=== PATIENT | male | born 1950 | race Caucasian/White ===

== ENCOUNTER 2021-02-19 13:23 | Inpatient (IN) | payer MEDICARE, OTHER ==
[2021-02-19] VITALS (18 sets, daily range): BP systolic 92–121; BP diastolic 30–78
[~2021-02-19] VITALS: Ht 170.2 cm; Wt 68.5 kg
[~2021-02-19 13:23] MED LIST: ACID1TAB12 GT; AMIO200T5 GT; BACL10TA GT; CETI10CA GT; CHLO118L4 TP; CRAN3875 GT; DOCU-270 GT; ERYT-113 GT; FEXO180T GT; LISI10TA29 GT; METO25TA4 GT; MULT1TAB11 GT; PANT40TA49 GT; PROSTAT 64; RIVA10TA GT; SIMV-46 GT
[2021-02-19] MEDS ORDERED: VANCOMYCIN 1 GM in IV D5W 250 ML IV ONE (13:30)
[2021-02-19] MEDS ORDERED: CEFEPIME 1 GM in IV D5W 50 ML IV ONE (13:30)
--- NOTE | 2021-02-19 13:44 | NUR ---
STARTED LINE, BLOOD SPECIMEN COLLECTED AND SENT TO THE LAB
[2021-02-19 13:47] LABS: BASOPHILS # (AUTO) 0.1 K/uL (0.0-0.2); BASOPHILS % (AUTO) 0.5 % (0.0-2.0); EOSINOPHILS % (AUTO) 0.3 % (0.0-6.0); HEMATOCRIT 45 % (39-51); HEMOGLOBIN 15.1 g/dL (13.5-17.5); LYMPHOCYTES # (AUTO) 1.9 K/uL (0.8-4.8); LYMPHOCYTES % (AUTO) 13.8 % (20.0-44.0); MEAN CORPUSCULAR HGB CONC 34 g/dl (31.0-36.0); MEAN CORPUSCULAR VOLUME 98 fL (80-96); MONOCYTES # (AUTO) 1.2 K/uL (0.1-1.30); MONOCYTES % (AUTO) 8.3 % (2.0-12.0); NEUTROPHILS # (AUTO) 10.8 K/uL (1.8-8.9); NEUTROPHILS % (AUTO) 77.1 % (43.0-81.0); PLATELET COUNT (AUTO) 243 K/uL (150-450); RED BLOOD CELL COUNT(AUTO) 4.59 MIL/uL (4.5-6.0)
[2021-02-19 14:00] LABS: CALCIUM, SERUM 9.3 mg/dL (8.5-10.1); CARBON DIOXIDE 37 mmol/L (21-32); CHLORIDE 102 mmol/L (98-107); CREATININE 1.3 mg/dL (0.6-1.3); GLUCOSE 98 mg/dL (74-106); POTASSIUM 4.8 mmol/L (3.5-5.1); SODIUM SERUM 144 mmol/L (136-145); UREA NITROGEN, BLOOD 29 mg/dL (7-18)
[2021-02-19] MEDS ORDERED: IV NS 0.9% 1,000 ML BAG IV ONE (14:00)
[2021-02-19 14:06] LABS: ALANINE AMINOTRANSFERASE 34 U/L (12-78); ALBUMIN 2.4 g/dL (3.4-5.0); ALKALINE PHOSPHATASE 204 U/L (46-116); ASPARTATE AMINOTRANSFERASE 26 U/L (15-37); BILIRUBIN,DIRECT 0.2 mg/dL (0.0-0.2); BILIRUBIN,TOTAL 0.7 mg/dL (0.2-1.0); TOTAL PROTEIN, SERUM 7.5 g/dL (6.4-8.2)
--- NOTE | 2021-02-19 14:13 | NUR ---
COVID SWAB DONE AND SENT TO THE LAB
--- NOTE | 2021-02-19 14:21 | NUR ---
URINE COLLECTED AND SENT TO THE LAB
[2021-02-19 14:27] LABS: BILIRUBIN,URINE SMALL (NEGATIVE); COLOR,URINE YELLOW (YELLOW); LEUKOCYTE ESTERASE ,URINE Small (NEGATIVE); NITRITE, URINE Positive (NEGATIVE); PH,URINE 8.5 (5.0-8.0); PROTEIN,URINE 100 mg/dl (NEGATIVE); UGLUCOSE Negative (NEGATIVE)
[2021-02-19] MEDS ORDERED: OMEG1600 GT (14:27)
[2021-02-19] MEDS ORDERED: ACET-868 GT (14:27)
[2021-02-19] MEDS ORDERED: BISA10SU11 RC (14:27)
[2021-02-19] MEDS ORDERED: HYDR-4076 GT (14:27)
[2021-02-19] MEDS ORDERED: [UNRECOGNIZED DRUG - CODE] GT (14:27)
[2021-02-19] MEDS ORDERED: ACET-2605 GT (14:27)
[2021-02-19] MEDS ORDERED: IPRA4AER IH ×2 (14:27)
[2021-02-19] MEDS ORDERED: OMEP20CA15 GT (14:27)
[2021-02-19] MEDS ORDERED: NUT.237L25 GT (14:27)
[2021-02-19] MEDS ORDERED: TAMS-12 GT (14:27)
[2021-02-19] MEDS ORDERED: CHOL400T GT (14:27)
[2021-02-19] MEDS ORDERED: LEVO75TA7 GT (14:27)
[2021-02-19] MEDS ORDERED: POLY15DR40 EACHEYE (14:27)
[2021-02-19] MEDS ORDERED: SPIR25TA GT (14:27)
[2021-02-19] MEDS ORDERED: CALC1TAB30 GT (14:27)
[2021-02-19] MEDS ORDERED: CRAN3875 GT (14:27)
[2021-02-19] MEDS ORDERED: NA P133E RC (14:27)
[2021-02-19] MEDS ORDERED: SACC250C GT (14:27)
[2021-02-19] MEDS ORDERED: MAGN400O6 GT (14:27)
[2021-02-19 14:35] LABS: BACTERIA,URINE 1+ /HPF (None Seen); SQUAMOUS EPITHELIAL CELL,UR Rare /HPF (None Seen)
--- NOTE | 2021-02-19 15:50 | NUR ---
80/[address] GRIGSBY MADE AWARE WITH NO NEW ORDERS
[2021-02-19] MEDS ORDERED: ZOLPIDEM TARTRATE 5 MG TABLET PO PRN (17:30)
[2021-02-19] MEDS ORDERED: CEFTRIAXONE 1 G in IV D5W 50 ML IV SCH (17:30)
[2021-02-19] MEDS ORDERED: ONDANSETRON HCL/PF 4 MG/2 ML VIAL IVP PRN (17:30)
[2021-02-19] MEDS ORDERED: Z GUARD REMEDY 2 OZ OINT TP PRN (17:30)
[2021-02-19] MEDS ORDERED: BISACODYL SUPP (10 MG) 10 MG/SUPP.RECT SUPP.RECT RC PRN (17:30)
[2021-02-19] MEDS ORDERED: HYDROCODONE/APAP 5/325MG TABLET PO PRN (17:30)
[2021-02-19] MEDS ORDERED: ACETAMINOPHEN 325 MG TABLET PO PRN (17:30)
[2021-02-19] MEDS: NOREPINEPHRINE 8 MG in IV NS 0.9% 250 ML IV ONE ×2 (17:37→17:39)
--- NOTE | 2021-02-19 18:21 | NUR ---
JOCELYN () [phone] (HOME), (CELL)
--- NOTE | 2021-02-19 18:25 | NUR ---
ROOM [facility]
--- NOTE | 2021-02-19 18:40 | NUR ---
PICC LINE NURSE AT THE BEDSIDE
--- NOTE | 2021-02-19 18:44 | NUR ---
REPORT GIVEN TO NURSE GONZALES FROM ICU
--- NOTE | 2021-02-19 18:46 | NUR ---
CHEST R-RAY S/P PICC LINE INSERTION PER DR HAMLIN
--- NOTE | 2021-02-19 19:15 | NUR ---
VENEER PRESS OPERATOR NOTES RECEIVED PT FROM ER. OPENS EYES ON TRACH, 4L O2. NO SOB. NO S/S OF RESPIRATORY DISTRESS. GTUBE IN PLACE. IV ACCESS ON L WRIST #24, R AC#18 AND MANUELITO PICC LINE. ALL INTACT, PATENT AND FLUSHED. LEVO @0.2MCG/KG/MIN. HERNANDEZ CATH IN PLACE, DRAINING TEA COLORED URINE. SAFETY MEASURES IN PLACE. BED LOCKED AND IN LOWEST POSITION. ENDORSED TO NIGHT RN FOR DINAH.
[2021-02-19] MEDS: NOREPINEPHRINE 8 MG in IV NS 0.9% 242 ML IV PRN (19:22)
--- NOTE | 2021-02-19 19:40 | NUR ---
COMMUNITY SUPPORT SPECIALIST OPENING NOTE REC'D PT IN BED. ALERT, NONVERBAL, TPIECE RECEIVING 4L OF O2, TOLERATING WELL CURRENTLY O2 IS 97%. NO RESP DISTRESS NOTED, NO SOB. ON TELE MONITOR, PT PRESENTS WITH NSR HR OF 70. IV SITES FLUSHED, PICC NOTED TO HAVE GOOD BLOOD RETURN. RUNNING IS LEVO AT 0.2 MCG/KG/MIN TO KEEP SBP <90. WILL TITRATE ORDERED. PT IS AFEBRILE. PT HAS GT, AUSCULTATED, ASPIRATED CONFIRMED FOR PLACEMENT ASPIRATED, 15CC RESIDUAL NOTED. FLUSHED. NOTED DISCOLORATION ON GLUTEAL FOLDS, SACRAL AREA. SKIN INTACT. HERNANDEZ CATH PRESENT DRAINING VIA GRAVITY, RED/DARK COLOR URINE NOTED. PT SAFETY MEASURES OBSERVED BED LOCKED IN LOWEST POSITION HOB ELEVATED, SIDE RAILS UP X3. WILL CONT TO MONITOR CLOSELY THROUGHOUT SHIFT.
[2021-02-19] MEDS: IV NS 0.9% 1,000 ML IV PRN (19:47)
--- NOTE | 2021-02-19 20:50 | NUR ---
GAVE UPDATE TO JOCELYN SAYS SHE PLANS ON VISITING TOMORROW
[2021-02-19] MEDS ORDERED: ENOXAPARIN SODIUM 40 MG/0.4 ML DISP.SYRIN SQ SCH (21:00)
--- NOTE | 2021-02-19 21:00 | NUR ---
ALEXA NOTE: JOCELYN WORK PHONE NUMBER IN CASE CANNOT REACH THROUGH CELL OR HOME WORK: [phone] Addendum: 02/20/21 at 0651 by KO VILLANUEVA RN JOCELYN KRISHNAN)
[2021-02-19] MEDS: SIMVASTATIN 20 MG TABLET GT SCH (21:46)
--- NOTE | 2021-02-19 22:00 | NUR ---
PT IS COVID VACCINATED, BOTH MODERNA RECEIVED MAY 2020 AND JUN 2020 PER JOCELYN
[2021-02-20] VITALS (89 sets, daily range): BP systolic 83–130; BP diastolic 34–82
[2021-02-20] MEDS: VANCOMYCIN 1 GM in IV D5W 250 ML IV SCH ×2 (01:11→13:53)
[2021-02-20] MEDS: NOREPINEPHRINE 8 MG in IV NS 0.9% 242 ML IV PRN ×3 (03:08→19:57)
[2021-02-20 04:35] LABS: BASOPHILS % (AUTO) 0.2 % (0.0-2.0); EOSINOPHILS % (AUTO) 0.3 % (0.0-6.0); HEMATOCRIT 37 % (39-51); HEMOGLOBIN 12.4 g/dL (13.5-17.5); LYMPHOCYTES # (AUTO) 1.5 K/uL (0.8-4.8); LYMPHOCYTES % (AUTO) 12.3 % (20.0-44.0); MEAN CORPUSCULAR HGB CONC 34 g/dl (31.0-36.0); MEAN CORPUSCULAR VOLUME 99 fL (80-96); MONOCYTES # (AUTO) 0.8 K/uL (0.1-1.30); MONOCYTES % (AUTO) 6.1 % (2.0-12.0); NEUTROPHILS # (AUTO) 10.1 K/uL (1.8-8.9); NEUTROPHILS % (AUTO) 81.1 % (43.0-81.0); PLATELET COUNT (AUTO) 230 K/uL (150-450); RED BLOOD CELL COUNT(AUTO) 3.73 MIL/uL (4.5-6.0); WHITE BLOOD COUNT (AUTO) 12.4 K/uL (4.3-11.0)
[2021-02-20 04:59] LABS: CALCIUM, SERUM 7.8 mg/dL (8.5-10.1); CREATININE 0.9 mg/dL (0.6-1.3); MAGNESIUM 1.7 mg/dL (1.8-2.4); POTASSIUM 3.3 mmol/L (3.5-5.1)
[2021-02-20 05:14] LABS: THYROID STIMULATING HORMONE 2.231 uIU/mL (0.358-3.74)
--- NOTE | 2021-02-20 06:51 | NUR ---
RN CLOSING NOTE NO SIGNIFICANT CHANGES IN PT CONDITION. STILL REMAINS ON 4L ON TPIECE. NO DISTRESS NOTED. BED BATH DONE, ORAL CARE DONE. SUCTIONING NEEDED. SPUTUM THICK IN CONSISTENCY. PT DENIES PAIN. PT REMAINS WITH LEVO AT 0.16 MCG/KG/MIN TO KEEP BP >90 ORDERED. SAFETY MEASURES WILL CONT TO BE OBSERVED UNTIL END OF SHIFT. WILL GIVE REPORT TO DAY SHIFT RN FOR CONTINUATION OF CARE.
--- NOTE | 2021-02-20 07:30 | NUR ---
ASSISTANT COMMUNITY DIRECTOR OPENING NOTE TRACH T-PIECE PT ON 4L O2, SPO2 > 98%, NO S/S OF RESP DISTRESS OR SOB NOTED. PT NONVERBAL BUT ABLE TO RESPOND TO YES/NO QUESTIONS, DENIES PAIN AT THIS TIME. PT CURRENTLY NSR HR IN 60s BEDSIDE MONITOR, HAD A BRIEF PERIOD OF A-FLUTTER THAT CONVERTED BACK TO NSR ON IT'S OWN APPROX AT 0300. PT HAS MANUELITO PICC RUNNING NS @ 75 ML/HR AND LEVO @ 0.16 MCG/KG/MIN, ALSO RAC #18, BOTH FLUSHED AND PATENT WITH NO S/S OF INFECTION/INFILTRATION. PT HERNANDEZ CATH DRAINING MERCY URINE WITH SCANT AMOUNT OF HEMATURIA NOTED TO GRAVITY. ALL PT SAFETY PRECAUTION IN PLACE, WILL CONT TO MONITOR
--- NOTE | 2021-02-20 07:31 | NUR ---
RN NOTE PT GTUBE CLAMPED, AUSCULTATED FOR POSITIVE PLACEMENT, FLUSHED AND INTACT. 10cc RESIDUALS NOTED
[2021-02-20] MEDS: LEVOTHYROXINE SODIUM 75 MCG TABLET GT SCH (08:07)
[2021-02-20] MEDS: BACLOFEN (10 MG) 10 MG TABLET GT SCH ×3 (08:07→17:40)
[2021-02-20] MEDS: PANTOPRAZOLE 40 MG TABLET.DR PO SCH (08:07)
[2021-02-20] MEDS: CHOLECALCIFEROL (VITAMIN D 3) 400 UNIT TABLET GT SCH (08:07)
[2021-02-20] MEDS: TAMSULOSIN 0.4 MG CAP.SR.24H GT SCH (08:07)
[2021-02-20] MEDS: CEFEPIME 2 GM in IV D5W 100 ML IV SCH (08:08)
[2021-02-20] MEDS ORDERED: DOCUSATE SODIUM 100 MG CAPSULE PO SCH (09:00)
[2021-02-20] MEDS: TWOCAL HN 1,000 ML LIQUID GT SCH ×3 (09:00→19:03)
[2021-02-20] MEDS: IV NS 0.9% 1,000 ML IV PRN (09:04)
[2021-02-20] MEDS ORDERED: POTASSIUM CHLORIDE 20 MEQ POWDER PACKET GT SCH (10:00)
[2021-02-20] MEDS: DOCUSATE SODIUM LIQ 100 MG/10 ML UDC GT SCH (10:20)
[2021-02-20] MEDS: Magnesium 1GM/D5W 100ML PREMIX 100 ML IV SCH ×2 (10:20→12:21)
--- NOTE | 2021-02-20 15:53 | NUR ---
TRACHED PT CORY O2 VIA T-PIECE WELL ATT. MINIMAL AMOUNT OF SECRETIONS. SPO2 98% HR 65. BVM AT HOB. Addendum: 02/20/21 at 1554 by ISIAH TIPTON RT Amended: Links added.
--- NOTE | 2021-02-20 19:15 | NUR ---
CHOCOLATE DIPPER RCD PT W/DX SEPSIS, UTI. SB ON MONITOR. LEVOPHED 0.16 MCG/KG/MIN VIA MANUELITO PICC LINE. PORTEX 6 W/ T PIECE AT 4 L. RENDERED ORAL AND TRACH CARE. LARGE AMOUNT OF HUA SECRETIONS NOTED. PT IS ALERT NON VERBAL ABLE TO NOD YES OR NO. HERNANDEZ CATH IN PLACE DRAINING DARK YELLOW URINE.
--- NOTE | 2021-02-20 19:26 | NUR ---
DETACHER CLOSING NOTE NO CHANGES TO PT DURING SHIFT. PT ON T-PIECE 4L, TOLERATING WELL, SPO2 > 93%, NO RESP DISTRESS OR SOB. PT ON LEVO @ 0.16 MCG/KG/HR AND NS @ 75 ML/HR. ALL PT SAFETY PRECAUTIONS IN PLACE, DINAH ENDORED TO PEDIATRIC HOSPITALIST RN
[2021-02-20] MEDS: RIVAROXABAN 10 MG TABLET GT SCH (20:24)
[2021-02-20] MEDS: SIMVASTATIN 20 MG TABLET GT SCH (21:31)
[2021-02-21] VITALS (96 sets, daily range): BP systolic 77–118; BP diastolic 43–76
--- NOTE | 2021-02-21 00:10 | NUR ---
ADVERTISING DISPATCH CLERKS SUPERVISOR CALLED LAB FOR VANCO TROUGH DRAW
--- NOTE | 2021-02-21 01:00 | NUR ---
HOUSE PAINTER HELPERALEXA ULRICH TROUGH 15; MED GIVEN PER ORDER
[2021-02-21] MEDS: VANCOMYCIN 1 GM in IV D5W 250 ML IV SCH ×2 (01:01→13:10)
--- NOTE | 2021-02-21 07:03 | NUR ---
F[employer] JOINTER TITRATED LEVOPHED TO 0.06 MCG/KG/MIN PER PROTOCOL.
[2021-02-21] MEDS: PANTOPRAZOLE 40 MG TABLET.DR PO SCH (07:38)
[2021-02-21] MEDS: LEVOTHYROXINE SODIUM 75 MCG TABLET GT SCH (07:38)
--- NOTE | 2021-02-21 08:00 | NUR ---
RECEIVED PATIENT A&O X 3, ABLE TO NOD HEAD FOR YES AND NO AND ABLE TO COMMUNICATE WRITING OUT NEEDS ON SMALL DRY ERASE BOARD, MANUELITO PICC LINE INTACT AND FLUSHING, NS 75 mL/HR , LEVOPHED 0.06 MCG/KG/MIN VIA MANUELITO PICC LINE, FACE, NECK, TRACH AND ORAL CARE PROVIDED, TOP LINENS CHANGED, REPOSITIONED FOR COMFORT, G-TUBE INTACT AND AREA CLEANED NEW GAUZE APPLIED, PATENT FLOWING PROPERLY AND WELL WITH GRAVITY, GIVEN TWOCAL VANILLA FOR BREAKFAST ORDER NO EMISES NOTED, 3 ML OF RESIDUAL, PILLOWS ADJUSTED AND APPLIED TO RELIEVE PRESSURE ON ELBOWS, KNEES, AND BI-LATERAL FEET, HEMAURIA NOTED - MD MADE AWARE, MONITORING FOR ANY S/S OF PATIENT PULLING OR TUGGING ON F/C IT IS INTACT, AREA CLEANSED AND NO S/S OF IRRITATION OR INFECTION NOTED AT THIS TIME, WILL CONTINUE TO MONITOR. BED LOW TO FLOOR, CALL LIGHT IN REACH, CLOSING MONITORING B/P AND PULSE WHILE ON LEVOPHED MEDICATION AT THIS TIME.
[2021-02-21] MEDS: DOCUSATE SODIUM LIQ 100 MG/10 ML UDC GT SCH (08:19)
[2021-02-21] MEDS: CHOLECALCIFEROL (VITAMIN D 3) 400 UNIT TABLET GT SCH (08:20)
[2021-02-21] MEDS: BACLOFEN (10 MG) 10 MG TABLET GT SCH ×3 (08:20→16:24)
[2021-02-21] MEDS: CEFEPIME 2 GM in IV D5W 100 ML IV SCH (08:21)
[2021-02-21] MEDS: TAMSULOSIN 0.4 MG CAP.SR.24H GT SCH (09:00)
[2021-02-21] MEDS: TWOCAL HN 1,000 ML LIQUID GT SCH ×3 (09:00→16:25)
[2021-02-21 09:41] LABS: BASOPHILS % (AUTO) 0.4 % (0.0-2.0); EOSINOPHILS % (AUTO) 3.6 % (0.0-6.0); HEMATOCRIT 34 % (39-51); HEMOGLOBIN 11.7 g/dL (13.5-17.5); LYMPHOCYTES % (AUTO) 9.9 % (20.0-44.0); MEAN CORPUSCULAR HGB CONC 35 g/dl (31.0-36.0); MEAN CORPUSCULAR VOLUME 98 fL (80-96); MONOCYTES # (AUTO) 0.8 K/uL (0.1-1.30); MONOCYTES % (AUTO) 7.5 % (2.0-12.0); NEUTROPHILS % (AUTO) 78.6 % (43.0-81.0); PLATELET COUNT (AUTO) 226 K/uL (150-450); RED BLOOD CELL COUNT(AUTO) 3.47 MIL/uL (4.5-6.0); WHITE BLOOD COUNT (AUTO) 10.2 K/uL (4.3-11.0)
[2021-02-21 10:00] LABS: CALCIUM, SERUM 7.3 mg/dL (8.5-10.1); CREATININE 0.4 mg/dL (0.6-1.3); MAGNESIUM 1.9 mg/dL (1.8-2.4); PHOSPHORUS 1.9 mg/dL (2.5-4.9); POTASSIUM 3.1 mmol/L (3.5-5.1)
--- NOTE | 2021-02-21 12:00 | NUR ---
PATIENT TOLERATING TWO JOSE FEEDING VIA G-TUBE, HYDRATION PROVIDED, PICCLINE ONE PEG CLOGGED NOTIFIED RN THERAPEUTIC RECREATION ASSISTANT SHE HELPED TO UNLCOG, NS OF 75ML/HOUR WAS HELD, NOW FLOWING AND PROVIDED, SITE/PICC LINE TUBE FLUSHED PATENT AND WORKING PROPERLY , THE LEVOPHED IS RUNNING AT 0.08 MCG/KG/MIN PER PROTOCOL TO MAINTAIN A B/P READING OF SYSTOLIC RATE ABOVE 90, IT HAD DROPPED TO 82/45 RN THERAPEUTIC RECREATION ASSISTANT NOTIFIED AND HELPED TO ENSURE PROPER 0.08MCG/KG/MIIN ON IV INFUSION DEVICE TO BE PROPERLY FLOWING DOSE, IT IS INTACT AND EFFECTIVE RATE MAINTAINING AT 90/54 AND REMAINING AT OR ABOVE SYSTOLIC OF 90M OR ABOVE AT THIS TIME, WILL CONTINUE TO CLOSELY MONITOR B/P AND HEART RATE, TRACH SUCTIONED AND ORAL CARE PROVIDED, LOOSE WHITE/YELLOW AND LIGHT BROWN SECRETIONS NOTED, TRACH AREA WIPED AND CLEANSED, NO C/O PAIN, NO SOB, AND NO DISTRESS NOTED, COMMUNICATING USING [employer] PERSONAL BOARD TO MAKE NEEDS KNOWN AND ASK QUESTIONS, ABLE TO COMMUNICATE VERY WELL WITH THIS DEVICE AND AWARE OF WHAT IS BEING SAID AND HAPPENING DURING CARE, FAMILY MEMBER GIRLFRIEND PRESENT AND HELPING PATIENT TO COMMUNICATE NEEDS, LINENS CHANGED AND CLEANED, PILLOWS RE-ADJUSTED FOR COMFORT, G-TUBE PATENT, INTACT AND FLOWING WELL, WILL CONTINUE TO CLOSELY MONITOR B/P AND PULSE. CALL LIGHT IN REACH
[2021-02-21] MEDS ORDERED: NEUTRA PHOS 1 POWD.PACKET NG ONE (16:00)
[2021-02-21] MEDS: POTASSIUM CHLORIDE 20 MEQ POWDER PACKET GT SCH ×2 (16:21→17:35)
[2021-02-21] MEDS: RIVAROXABAN 10 MG TABLET GT SCH (16:23)
--- NOTE | 2021-02-21 18:43 | NUR ---
PATIENT GIVEN BED BATH, REPOSITIONED, FULL LINEN CHANGED, F/C DRAINED, AKI- CARE PROVIDED, FACIAL AND ORAL CARE PROVIDED, TRACH SUCTIONED SMALL AMOUNT OF CLEAR/WHITE SOME HUA AND YELLOW DRAINAGE NOTED, OINTMENT APPLIED OF BARRIER CREAM TO BUTTOCKS INNER AND OUTER, PICC LINE PATENT AND FLOWING, NS 75ML PER HOUR RUNNING, 0.08 MCG/KG/HR RUNNING ON MAY PICC LINE INTACT PATENT FLUSHING, TOLERATED G-TUBE FEEDINGS WELL, ALL MD MEDICATIONS GIVEN PER ORDER NO ADVERSE SIDE EFFECTS NOTED FROM ABT TREATMENT, BED UPRIGHT HIGH FOWLERS FOR SUPPORT AND COMFORT, NO C/O PAIN, NO DISTRESS NOTED, PT ABLE TO SAY NO TO PILLOW UNDER LEFT ARM JUST WANTED IT TO REST NATURAL ON BED AND HIS BELLY AND ADJUSTED HOB TO HIS NEEDS HE REQUESTED IT TO BE A LITTLE LOWER THAN THE HIGH POLANCO POSITION FOR NOW WHILE SLEEPING WILL READJUST AND LIFT UP WHEN G-TUBE FEEDING AND PROVIDING MEDICATIONS VIA G-TUBE, F/C INTACT DRAINING YELLOW PINK URINE NO FOUL ODOR, MD AWARE OF HEMATURIA, WILL CONTINUE TO MONITOR. CALL LIGHT IN REACH, BED LOW TO FLOOR, WHEELS LOCKED FOR SAFETY, FOOTBALL GAME ON TV AND LIGHTS DIMMED FOR RELAXATION AND SOME ENJOYMENT TO RELAX.
--- NOTE | 2021-02-21 20:00 | NUR ---
ICU NOTES Received patient awake alert oriented x2-3.With trach on T-piece 4L.Saturation 100%. No respiratory distress noted.SR per monitor on Levophed gtt for BP support and will titrate accordingly infusing via alicia picc line.GT clamped and patent.IVF infusing well. FC to gravity noted hematuria MD aware.Patient denies pain or sob.Turned and repositioned. Safety measures implemented.
--- NOTE | 2021-02-21 20:47 | NUR ---
RCVD PT ON T-PIECE @ 4L. UPON THE RESULT OF COVID PCR TEST IS NEGATIVE ,PLACED PT ON COOL AEROSOL 28% 5L + T-PIECE . NO RESPIRATORY DISTRESS NOTED AT THIS TIME . ALEXA ALVARADO NOTIFIED. WILL CONTINUE TO MONITOR PT T/O THE SHIFT.
[2021-02-21] MEDS: SIMVASTATIN 20 MG TABLET GT SCH (21:24)
--- NOTE | 2021-02-21 22:00 | NUR ---
ICU NOTES Patient on cool aerosol and coughing.Secretions suctioned obtained moderate amount thick white secretions.No distress noted.
[2021-02-22] VITALS (61 sets, daily range): BP systolic 75–126; BP diastolic 37–99
--- NOTE | 2021-02-22 | NUR ---
ICU NOTES Patient awake alert.VS stable.Incontinent of loose brown stools.Perineal care and bed bath rendered. Complete linens changed.Trach care done.Turned and repositioned.
[2021-02-22] MEDS: NOREPINEPHRINE 8 MG in IV NS 0.9% 242 ML IV PRN ×2 (00:32→21:48)
[2021-02-22] MEDS: VANCOMYCIN 1 GM in IV D5W 250 ML IV SCH ×2 (00:40→12:02)
[2021-02-22] MEDS: IV NS 0.9% 1,000 ML IV PRN ×3 (00:42→21:57)
[2021-02-22 05:59] LABS: BASOPHILS # (AUTO) 0.1 K/uL (0.0-0.2); BASOPHILS % (AUTO) 0.4 % (0.0-2.0); EOSINOPHILS % (AUTO) 2.1 % (0.0-6.0); HEMATOCRIT 38 % (39-51); HEMOGLOBIN 12.8 g/dL (13.5-17.5); LYMPHOCYTES # (AUTO) 0.9 K/uL (0.8-4.8); LYMPHOCYTES % (AUTO) 6.9 % (20.0-44.0); MEAN CORPUSCULAR HGB CONC 34 g/dl (31.0-36.0); MEAN CORPUSCULAR VOLUME 98 fL (80-96); MONOCYTES # (AUTO) 0.7 K/uL (0.1-1.30); MONOCYTES % (AUTO) 5.2 % (2.0-12.0); NEUTROPHILS # (AUTO) 11.4 K/uL (1.8-8.9); NEUTROPHILS % (AUTO) 85.4 % (43.0-81.0); PLATELET COUNT (AUTO) 252 K/uL (150-450); RED BLOOD CELL COUNT(AUTO) 3.85 MIL/uL (4.5-6.0); WHITE BLOOD COUNT (AUTO) 13.4 K/uL (4.3-11.0)
[2021-02-22 06:00] LABS: CALCIUM, SERUM 7.7 mg/dL (8.5-10.1); CREATININE 0.5 mg/dL (0.6-1.3); MAGNESIUM 1.8 mg/dL (1.8-2.4); PHOSPHORUS 1.4 mg/dL (2.5-4.9); POTASSIUM 3.7 mmol/L (3.5-5.1)
--- NOTE | 2021-02-22 06:00 | NUR ---
ICU NOTES Patient Tele SR with in and out of afib 80's at short intervals..Levophed gtt cont at 0.08 mcg BP unstable.Oral care done.Secretions suctioned.No acute distress noted.Still with hematuria urine output 1750 ml during the shift.Turned and repositioned.Due medications given.Kept comfortable.
--- NOTE | 2021-02-22 07:51 | NUR ---
RADIAL DRILL PRESS SET UP OPERATOR OPENING NOTES; RECEIVED PT AWAKE, IN L SIDE LYING POS. PT A/OX2. IV ACCESS, PATENT, WITH NO SIGNS OF INFILTRATION. NO SOB OR DISTRESS NOTED. SAFETY MEASURES MAINTAINED, BED IN LOWEST POS. LOCKED WITH CALL LIGHT WITHIN REACH. WILL CONTINUE TO MONITOR.
[2021-02-22] MEDS: DOCUSATE SODIUM LIQ 100 MG/10 ML UDC GT SCH (08:03)
[2021-02-22] MEDS: TAMSULOSIN 0.4 MG CAP.SR.24H GT SCH (08:03)
[2021-02-22] MEDS: CHOLECALCIFEROL (VITAMIN D 3) 400 UNIT TABLET GT SCH (08:03)
[2021-02-22] MEDS: BACLOFEN (10 MG) 10 MG TABLET GT SCH ×3 (08:03→16:12)
[2021-02-22] MEDS: LEVOTHYROXINE SODIUM 75 MCG TABLET GT SCH (08:03)
[2021-02-22] MEDS: CEFEPIME 2 GM in IV D5W 100 ML IV SCH ×2 (08:03→20:30)
[2021-02-22] MEDS: PANTOPRAZOLE 40 MG TABLET.DR PO SCH (08:03)
[2021-02-22] MEDS: TWOCAL HN 1,000 ML LIQUID GT SCH ×3 (08:56→16:14)
[2021-02-22] MEDS ORDERED: NEUTRA PHOS 1 POWD.PACKET GT ONE (15:30)
[2021-02-22] MEDS: RIVAROXABAN 10 MG TABLET GT SCH (16:13)
--- NOTE | 2021-02-22 18:33 | NUR ---
BLOOD TESTER FOWL CLOSING NOTES; PT IN BED SLEEPING. A/OX3. ALL MEDICATION GIVEN AND TOLERATED WELL. PT KEPT CLEAN, DRY, AND COMFORTABLE. NO SIGNIFICANT CHANGES IN PT HEALTH STATUS DURING SHIFT. ALL SAFETY MEASURES RENDERED, BED LOCKED IN LOWEST POS. WITH CALL LIGHT WITHIN REACH. ENDORSED TO MIXER TENDER IN STABLE CONDITION.
[2021-02-22] MEDS: SIMVASTATIN 20 MG TABLET GT SCH (21:50)
[2021-02-23] VITALS (28 sets, daily range): BP systolic 78–129; BP diastolic 32–82
[2021-02-23 04:54] LABS: BASOPHILS # (AUTO) 0.1 K/uL (0.0-0.2); BASOPHILS % (AUTO) 0.9 % (0.0-2.0); EOSINOPHILS % (AUTO) 5.3 % (0.0-6.0); HEMATOCRIT 35 % (39-51); HEMOGLOBIN 12.1 g/dL (13.5-17.5); LYMPHOCYTES # (AUTO) 1.4 K/uL (0.8-4.8); LYMPHOCYTES % (AUTO) 14.8 % (20.0-44.0); MEAN CORPUSCULAR HGB CONC 34 g/dl (31.0-36.0); MEAN CORPUSCULAR VOLUME 98 fL (80-96); MONOCYTES # (AUTO) 0.6 K/uL (0.1-1.30); MONOCYTES % (AUTO) 6.5 % (2.0-12.0); NEUTROPHILS % (AUTO) 72.5 % (43.0-81.0); PLATELET COUNT (AUTO) 256 K/uL (150-450); RED BLOOD CELL COUNT(AUTO) 3.61 MIL/uL (4.5-6.0); WHITE BLOOD COUNT (AUTO) 9.6 K/uL (4.3-11.0)
[2021-02-23 05:02] LABS: CALCIUM, SERUM 7.7 mg/dL (8.5-10.1); CREATININE 0.6 mg/dL (0.6-1.3); MAGNESIUM 1.7 mg/dL (1.8-2.4); POTASSIUM 4.1 mmol/L (3.5-5.1)
--- NOTE | 2021-02-23 07:25 | NUR ---
RT Pt received trached on cool aerosol 28%, pt is awake and responds to stimuli. Pt suctioned moderate thick white/yellow thick secretions. Spare trach and BVM by bedside. No SOB or respiratory distress noted. Addendum: 02/23/21 at 0837 by STEPHANY CARTER RT Amended: Links added.
--- NOTE | 2021-02-23 07:30 | NUR ---
VERIFIER OPENING NOTE TRACH T-PIECE PT ON 5L O2, SPO2 > 99%, NO S/S OF RESP DISTRESS OR SOB NOTED. PT NONVERBAL BUT ABLE TO RESPOND TO YES/NO QUESTIONS, DENIES PAIN AT THIS TIME. PT NSR HR IN 60s BEDSIDE MONITOR. PT HAS MANUELITO PICC RUNNING NS @ 75 ML/HR, RAC #18, BOTH FLUSHED AND PATENT WITH NO S/S OF INFECTION/INFILTRATION. PT G-TUBE AUSCULTATED FOR POSITIVE PLACEMENT, FLUSHED AND PATENT, 30cc RESIDUALS NOTED. PT HERNANDEZ CATH DRAINING MERCY URINE WITH SCANT AMOUNT OF HEMATURIA NOTED TO GRAVITY. ALL PT SAFETY PRECAUTION IN PLACE, WILL CONT TO MONITOR
[2021-02-23] MEDS: CEFEPIME 2 GM in IV D5W 100 ML IV SCH ×2 (08:23→21:02)
[2021-02-23] MEDS: DOCUSATE SODIUM LIQ 100 MG/10 ML UDC GT SCH (08:23)
[2021-02-23] MEDS: BACLOFEN (10 MG) 10 MG TABLET GT SCH ×3 (08:23→16:33)
[2021-02-23] MEDS: CHOLECALCIFEROL (VITAMIN D 3) 400 UNIT TABLET GT SCH (08:23)
[2021-02-23] MEDS: TAMSULOSIN 0.4 MG CAP.SR.24H GT SCH (08:23)
[2021-02-23] MEDS: PANTOPRAZOLE 40 MG TABLET.DR PO SCH (08:23)
[2021-02-23] MEDS: LEVOTHYROXINE SODIUM 75 MCG TABLET GT SCH (08:23)
[2021-02-23] MEDS: TWOCAL HN 1,000 ML LIQUID GT SCH ×3 (09:12→17:53)
[2021-02-23] MEDS: Magnesium 1GM/D5W 100ML PREMIX 100 ML IV SCH ×2 (10:42→12:18)
[2021-02-23] MEDS ORDERED: NEUTRA PHOS 1 POWD.PACKET GT ONE (11:00)
--- NOTE | 2021-02-23 11:42 | NUR ---
RT Pt suctioned moderate thick white/yellow thick secretions. Addendum: 02/23/21 at 1207 by STEPHANY CARTER RT Amended: Links added.
--- NOTE | 2021-02-23 13:00 | NUR ---
JACQUARD CARD CUTTER TRANSFER NOTE PT STABLE ON T-PIECE 5L,SPO2 100%, HR IN 60s, BP STABILIZED AND OFF OF LEVO SINCE 0100 THIS MORNING. HERNANDEZ CATH OUTPUT OF 825cc UP TO THIS POINT. BEDSIDE REPORT GIVEN TO ALEXA LAURA. ALL PT SAFETY PRECAUTIONS IN PLACE,
--- NOTE | 2021-02-23 13:22 | NUR ---
MS RN NOTES PT TRANSFERRED FROM ICU TO ROOM 312-2 VIA PT'S BED AT 1300 ACCOMPANIED BY DENISHA WATER CONTROL STATION ENGINEER. PT IS A/O X2. NON-VERBAL BUT RESPONDS BY NODDING. PT ORIENTED TO STAFF AND ROOM. V/S TAKEN AND RECORDED. PT ON COOL AEROSOL T-PIECE AT 5LPM, TOLERATING WELL WITH NO SOB NOTED. PT WITH TRIPLE LUMEN PICC LINE ON COURTNEY WITH IVF OF NS @ 75ML/HR INFUSING WELL. PT ALSO NOTED WITH IV SL ON RAC G#18 INTACT AND PATENT. PT WITH G-TUBE IN PLACE AND PATENT. ASPIRATION PRECAUTIONS MAINTAINED. HERNANDEZ INTACT DRAINING BRIGHT RED URINE VIA GRAVITY. SAFETY MEASURES MAINTAINED: BED PLACED IN LOWEST LOCKED POSITION WITH SR-UP X2. KEEP HOB ELEVATED, CALL LIGHT W/I REACH. WILL CONTINUE TO MONITOR PT ACCORDINGLY.
--- NOTE | 2021-02-23 15:01 | NUR ---
RT Pt brought CT for procedure. Pt is back in his room now and placed back on cool aerosol 28%. Pt suctioned small thick white/yellow thick secretions. No SOB or respiratory distress noted. Addendum: 02/23/21 at 1502 by STEPHANY CARTER RT Amended: Links added.
[2021-02-23] MEDS: IV NS 0.9% 1,000 ML IV PRN (16:01)
[2021-02-23] MEDS: RIVAROXABAN 10 MG TABLET GT SCH (16:38)
--- NOTE | 2021-02-23 18:40 | NUR ---
RN MS CLOSING NOTES -PT IS A/O X2. NON-VERBAL BUT RESPONDS BY NODDING. PT ORIENTED TO STAFF AND ROOM. PT ON COOL AEROSOL T-PIECE AT 5LPM, TOLERATING WELL WITH NO SOB NOTED. PT WITH TRIPLE LUMEN PICC LINE ON COURTNEY WITH IVF OF NS @ 75ML/HR PATENT AND INFUSING WELL. PT ALSO NOTED WITH IV SL ON RAC G#18 INTACT AND PATENT. PT WITH G-TUBE IN PLACE AND PATENT. ASPIRATION PRECAUTIONS MAINTAINED. HERNANDEZ INTACT CLEAR YELLOW URINE VIA GRAVITY, NO HEMATURIA NOTED. SAFETY MEASURES MAINTAINED: BED PLACED IN LOWEST LOCKED POSITION WITH SR-UP X2. KEEP HOB ELEVATED, CALL LIGHT W/IN EASY REACH. WILL ENDORSED PT. TO POSITION DESCRIPTION MANAGER NURSE FOR CONTINUITY OF CARE
--- NOTE | 2021-02-23 19:36 | NUR ---
RT Pt received trached on cool aerosol 28%, pt is awake and responds to verbal stimuli. Pt sxed. Spare trach and BVM at bedside. No SOB or s/s of respiratory distress noted. will continue to monitor t/o shift
--- NOTE | 2021-02-23 19:37 | NUR ---
RN OPENING NOTES: RECEIVED PATIENT AWAKE IN BED, BED IN LOW POSITION, CALL LIGHTS WITHIN REACH, NO COMPLAIN OF PAINA ND DISCOMFORT AT THIS TIME, NPO ON G TUBE FEEDING IV BOLUS, ON ON COOL AEROSOL AT 5LPM NO SOB WAS OBSERVED, PATIENT HAS IV LINE AT MANUELITO PICC LINE WITH NSS@75ML PER HR INFUSING WELL, RAC#18SL, HOB AT 45 DEGREE NO SOB WAS OBSERVED, PATIENT KEPT CLEAN AND DRY, ALL NEEDS MET WILL CONTINUE TO MONITOR.
[2021-02-23] MEDS: SIMVASTATIN 20 MG TABLET GT SCH (22:40)
[2021-02-24 00:49] VITALS: BP 101/63
[2021-02-24] MEDS: IV NS 0.9% 1,000 ML IV PRN ×2 (06:30→22:44)
--- NOTE | 2021-02-24 07:10 | NUR ---
RN OPENING NOTES: RECEIVED PATIENT AWAKE IN BED, A/O X2. PATIENT IS BREATHING EVENLY AND NONLABORED ON COOL AEROSOL AT 5LPM NO SOB WAS OBSERVED NO SIGNS DISCOMFORT AT THIS TIME, PATIENT NPO ON G TUBE FEEDING IV BOLUS, PATIENT HAS IV LINE AT [facility] PICC LINE WITH NSS@75ML PER HR INFUSING WELL, HOB AT 45 DEGREE NO SOB WAS OBSERVED, NO COMPLAINTS OF PAIN AT THIS TIME. SAFETY MEASURES IN PLACE, BED LOW LOCKED CALL LIGHT WITHIN REACH, WILL CONTINUE TO MONITOR
--- NOTE | 2021-02-24 07:28 | NUR ---
RN CLOSING NOTES: RECEIVED PATIENT SLEEP IN BED COMFORTABLY, BED IN LOW POSITION, CALL LIGHTS WITHIN REACH, NO COMPLAIN OF PAIN AND DISCOMFORT , ON HERNANDEZ CATHETER, WITH MANUELITO PICC LINE WITH NSS@75ML PER HOUR INFUSING WELL, OON G TUBE BOLUS FEEDING, ON COOLE AEROSOL TRACH @5LPM NO SOB NOTED DURING THE SHIFT. PATEIENT KEPT CLEAN AND DRY ,ALL NEEDS MET ENDORSE TO INCOMING SHIFT.
[2021-02-24] MEDS: LEVOTHYROXINE SODIUM 75 MCG TABLET GT SCH (07:29)
[2021-02-24] MEDS: CEFEPIME 2 GM in IV D5W 100 ML IV SCH ×2 (07:29→20:14)
[2021-02-24] MEDS: PANTOPRAZOLE 40 MG TABLET.DR PO SCH (07:29)
[2021-02-24 07:39] LABS: BASOPHILS % (AUTO) 0.4 % (0.0-2.0); EOSINOPHILS % (AUTO) 3.6 % (0.0-6.0); HEMATOCRIT 37 % (39-51); HEMOGLOBIN 12.5 g/dL (13.5-17.5); LYMPHOCYTES # (AUTO) 1.1 K/uL (0.8-4.8); LYMPHOCYTES % (AUTO) 9.6 % (20.0-44.0); MEAN CORPUSCULAR HGB CONC 34 g/dl (31.0-36.0); MEAN CORPUSCULAR VOLUME 99 fL (80-96); MONOCYTES # (AUTO) 0.6 K/uL (0.1-1.30); NEUTROPHILS % (AUTO) 81.4 % (43.0-81.0); PLATELET COUNT (AUTO) 275 K/uL (150-450); RED BLOOD CELL COUNT(AUTO) 3.74 MIL/uL (4.5-6.0); WHITE BLOOD COUNT (AUTO) 11.1 K/uL (4.3-11.0)
[2021-02-24 07:53] LABS: ALBUMIN 1.5 g/dL (3.4-5.0); BILIRUBIN,TOTAL 0.3 mg/dL (0.2-1.0); CREATININE 0.4 mg/dL (0.6-1.3); MAGNESIUM 2.3 mg/dL (1.8-2.4); PHOSPHORUS 2.6 mg/dL (2.5-4.9); POTASSIUM 3.8 mmol/L (3.5-5.1); TOTAL PROTEIN, SERUM 5.6 g/dL (6.4-8.2)
[2021-02-24 08:00] VITALS: BP 102/57
[2021-02-24] MEDS: BACLOFEN (10 MG) 10 MG TABLET GT SCH ×3 (08:26→16:12)
[2021-02-24] MEDS: TAMSULOSIN 0.4 MG CAP.SR.24H GT SCH (08:26)
[2021-02-24] MEDS: TWOCAL HN 1,000 ML LIQUID GT SCH ×5 (08:26→21:25)
[2021-02-24] MEDS: DOCUSATE SODIUM LIQ 100 MG/10 ML UDC GT SCH (08:26)
[2021-02-24] MEDS: CHOLECALCIFEROL (VITAMIN D 3) 400 UNIT TABLET GT SCH (08:26)
[2021-02-24 16:00] VITALS: BP 100/62
[2021-02-24] MEDS: RIVAROXABAN 10 MG TABLET GT SCH (16:15)
--- NOTE | 2021-02-24 18:22 | NUR ---
MS RN CLOSING NOTES: PATIENT AWAKE IN BED, A/O X2. PATIENT IS BREATHING EVENLY AND NONLABORED ON COOL AEROSOL AT 5LPM NO SOB WAS OBSERVED NO SIGNS DISCOMFORT AT THIS TIME, PATIENT NPO ON G TUBE FEEDING IV BOLUS, PATIENT HAS IV LINE AT [facility] PIC LINE WITH NSS@75ML PER HR INFUSING WELL, HOB AT 45 DEGREE NO SOB WAS OBSERVED, NO COMPLAINTS OF PAIN AT THIS TIME. ALL MEDICATIONS GIVEN ORDERED, WOUND CARE AND TURNING PERFORMED DURING SHIFT. SAFETY MEASURES IN PLACE, BED LOW LOCKED CALL LIGHT WITHIN REACH. WILL ENDORSE TO ONCOMING SHIFT.
--- NOTE | 2021-02-24 19:52 | NUR ---
MS RN OPENING NOTES: RECEIVED PATIENT AWAKE IN BED, HOB AT 45 DEGREE ON TRACH AND ON COOL AEROSOL AT 5LPM NO SOB WAS OBSERVED PATIENT WAS NPO ON GTUBE FEEDING, WITH IV MANUELITO PICC LINE WITH ONGOING NS @75ML/HR INFUSING WELL, PATIENT ON FFC WITH 50CC URINE OUTPUT, PATIENT KEPT CLEAN AND DRY, NO COMPLAIN OF PAIN AND DISCOMFORT WILL CONTINUE TO MONITOR.
[2021-02-24 20:04] VITALS: BP 105/56
[2021-02-24] MEDS: SIMVASTATIN 20 MG TABLET GT SCH (21:25)
[2021-02-24 23:40] VITALS: BP 105/56
--- NOTE | 2021-02-25 06:43 | NUR ---
RN CLOSING NOTES: PATIENT SLEEP IN BED COMFORTABLY, AROUSABLE TO STIMULI HOB AT 45 DEGREE ON COOL AEROSOL AT 5LPM NO RESP. DISTRESS WAS OBSERVED WITH HOB AT 45 DEGREE, TURNING POSITION DONE, PATIENT REMAINS CALM DURING THE NIGHT. M NPO, BOLUS G TUBE FEEDING OF 237 ML TWOCAL HN QID, IV LINE AT MANUELITO PICC LINE WITH 0.9NSS @ 75ML/HR INFUSING WELL, PATIENT KEPT CLEAN AND ALL NEEDS MET ENDORSE TO INCOMING SHIFT.
--- NOTE | 2021-02-25 07:30 | NUR ---
RN OPENING NOTES Patient seen comfortably lying in bed, no SOB, no apparent distress noted, breathing even and unlabored, denies any pain or discomfort at this time. Call light left within reach, safety precautions in place, brakes locked, side rails up X 2, will monitor closely for any changes.
[2021-02-25 07:44] LABS: BASOPHILS # (AUTO) 0.1 K/uL (0.0-0.2); BASOPHILS % (AUTO) 0.7 % (0.0-2.0); EOSINOPHILS % (AUTO) 4.4 % (0.0-6.0); HEMATOCRIT 36 % (39-51); HEMOGLOBIN 12.4 g/dL (13.5-17.5); LYMPHOCYTES # (AUTO) 1.6 K/uL (0.8-4.8); LYMPHOCYTES % (AUTO) 17.5 % (20.0-44.0); MEAN CORPUSCULAR HGB CONC 35 g/dl (31.0-36.0); MEAN CORPUSCULAR VOLUME 98 fL (80-96); MONOCYTES # (AUTO) 0.6 K/uL (0.1-1.30); MONOCYTES % (AUTO) 6.4 % (2.0-12.0); NEUTROPHILS # (AUTO) 6.7 K/uL (1.8-8.9); PLATELET COUNT (AUTO) 353 K/uL (150-450); RED BLOOD CELL COUNT(AUTO) 3.66 MIL/uL (4.5-6.0); WHITE BLOOD COUNT (AUTO) 9.4 K/uL (4.3-11.0)
[2021-02-25 07:46] LABS: CREATININE 0.5 mg/dL (0.6-1.3); PHOSPHORUS 2.2 mg/dL (2.5-4.9); POTASSIUM 3.6 mmol/L (3.5-5.1)
[2021-02-25 08:00] VITALS: BP 112/39
[2021-02-25] MEDS: CEFEPIME 2 GM in IV D5W 100 ML IV SCH (08:13)
[2021-02-25] MEDS: LEVOTHYROXINE SODIUM 75 MCG TABLET GT SCH (08:14)
[2021-02-25] MEDS: TAMSULOSIN 0.4 MG CAP.SR.24H GT SCH (08:14)
[2021-02-25] MEDS: PANTOPRAZOLE 40 MG TABLET.DR PO SCH (08:14)
[2021-02-25] MEDS: DOCUSATE SODIUM LIQ 100 MG/10 ML UDC GT SCH (08:14)
[2021-02-25] MEDS: BACLOFEN (10 MG) 10 MG TABLET GT SCH ×2 (08:14→12:29)
[2021-02-25] MEDS: CHOLECALCIFEROL (VITAMIN D 3) 400 UNIT TABLET GT SCH (08:14)
[2021-02-25] MEDS: RIVAROXABAN 10 MG TABLET GT SCH (08:15)
[2021-02-25] MEDS: TWOCAL HN 1,000 ML LIQUID GT SCH ×2 (09:42→12:30)
[2021-02-25] MEDS ORDERED: NEUTRA PHOS 1 POWD.PACKET GT ONE (12:00)
--- NOTE | 2021-02-25 19:00 | NUR ---
Patient to be discharged to [facility] today, spoke to Jp RN for report ([phone]) today, no apparent distress noted, no grimacing. Patient on cool aerosol T-piece at 5lpm, tolerating well. Patient made aware of the situation, AO X 1, non verbal, 2 RNs signed all discharge paperworks, all belongings taken, inventory list signed by 2 RNs. Health teaching provided. Skin intact, warm to touch, no pallor or cyanosis, photo of skin discolorations taken and filed in chart prior to discharge. Patient discharged with scruggs catheter, and is draining clear, yellowish urine, free from any sediments, no cloudiness, no hematuria, denies any pain or discomfort in the bladder area, no unusual odor noted in urine. Scruggs catheter bag changed prior to discharge. Patient discharged with peripheral IV on right antecubital # 18 and PICC line on left upper arm per request of RN taking report, properly endorsed to [facility] transportation staff. Name wristband removed prior to discharge. Patient left unit at 1700, stable condition, surgical facial mask and exit care folder with paperworks provided to [facility] transportation staff.
== END 2021-02-25 17:02 | DRG 871 ==
LOC: ER 13:26 → ICU 18:28 → MED 02-23 13:20
PROVIDERS: ATTEND Student in an Organized Health Care Education/Training Program
PROC: 02HV33Z Insertion of Infusion Device into Superior Vena Cava, Percutaneous Approach (ICD-10-PCS; principal; 2021-02-19)
PROC: B548ZZA Ultrasonography of Superior Vena Cava, Guidance (ICD-10-PCS; 2021-02-19)
DX: A41.9 Sepsis, unspecified organism (principal); R65.21 Severe sepsis with septic shock; J18.9 Pneumonia, unspecified organism; N39.0 Urinary tract infection, site not specified; J96.10 Chronic respiratory failure, unspecified whether with hypoxia or hypercapnia; D68.59 Other primary thrombophilia; G93.40 Encephalopathy, unspecified; J90 Pleural effusion, not elsewhere classified; J98.11 Atelectasis; Z99.11 Dependence on respirator [ventilator] status; Z20.822 Contact with and (suspected) exposure to COVID-19; Z93.1 Gastrostomy status; Z93.0 Tracheostomy status; I48.91 Unspecified atrial fibrillation; R13.10 Dysphagia, unspecified; E11.9 Type 2 diabetes mellitus without complications; Z88.8 Allergy status to other drugs, medicaments and biological substances; Z79.51 Long term (current) use of inhaled steroids; Z79.01 Long term (current) use of anticoagulants; Z79.899 Other long term (current) drug therapy; N40.0 Benign prostatic hyperplasia without lower urinary tract symptoms; L89.90 Pressure ulcer of unspecified site, unspecified stage; Z86.718 Personal history of other venous thrombosis and embolism; I10 Essential (primary) hypertension; E78.5 Hyperlipidemia, unspecified; E03.9 Hypothyroidism, unspecified; I70.0 Atherosclerosis of aorta; Y95 Nosocomial condition
CPT/HCPCS: 31720; 36415; 71045-TC; 71250-TC; 76604-TC; 80048-TC; 80053-TC; 80061-TC; 80076-TC; 80202-TC; 81001; 82533; 83605-TC; 83735-TC; 84100-TC; 84443-TC; 84484-TC; 85025-TC; 85730-TC; 87040-TC; 87081-TC; 87086-TC; 94640-TC; 94762-TC; 94799-TC; 99082-TC; A7526; G0378; J0692; J3370; J3475; J3490; J7030; J7050; J7060; U0003

== ENCOUNTER 2021-05-13 12:54 | Inpatient (IN) | payer MEDICARE, OTHER ==
[~2021-05-13] VITALS: Ht 175.3 cm; Wt 84.4 kg
[~2021-05-13 12:54] MED LIST changes: +ACET-2605 GT; +ACET-868 GT; -ACID1TAB12 GT; -AMIO200T5 GT; +BISA10SU11 RC; +CALC1TAB30 GT; -CETI10CA GT; +CHOL400T GT; -ERYT-113 GT; -FEXO180T GT; +IPRA4AER IH; +LEVO75TA7 GT; -LISI10TA29 GT; +MAGN400O6 GT; -METO25TA4 GT; +NA P133E RC; +NUT.237L25 GT; +OMEG1600 GT; +OMEP20CA15 GT; -PANT40TA49 GT; +POLY15DR40 EACHEYE; -PROSTAT 64; +SACC250C GT; +SPIR25TA GT; +TAMS-12 GT; +[UNRECOGNIZED DRUG - CODE] GT
--- NOTE | 2021-05-13 13:35 | NUR ---
BIBR A78 FROM SNF FOR LOW O2 SAT/SOB AND TACHYCARDIA. PT WAS DICHARGED YESTERDAY FROM [facility] DX PNEUMONIA ON VANCO AND MERREM. AWAKE, AAOX0. ASSISTED TO ER BED 1. POX 88 ON ARRIVAL.
--- NOTE | 2021-05-13 13:45 | NUR ---
POX 100% ON 12 L VIA TRACH
[2021-05-13 13:57] LABS: BASOPHILS # (AUTO) 0.1 K/uL (0.0-0.2); BASOPHILS % (AUTO) 0.7 % (0.0-2.0); EOSINOPHILS % (AUTO) 3.1 % (0.0-6.0); HEMATOCRIT 28 % (39-51); HEMOGLOBIN 9.5 g/dL (13.5-17.5); LYMPHOCYTES # (AUTO) 1.7 K/uL (0.8-4.8); LYMPHOCYTES % (AUTO) 17.9 % (20.0-44.0); MEAN CORPUSCULAR HGB CONC 34 g/dl (31.0-36.0); MEAN CORPUSCULAR VOLUME 94 fL (80-96); MONOCYTES # (AUTO) 0.7 K/uL (0.1-1.30); MONOCYTES % (AUTO) 6.9 % (2.0-12.0); NEUTROPHILS # (AUTO) 6.7 K/uL (1.8-8.9); NEUTROPHILS % (AUTO) 71.4 % (43.0-81.0); PLATELET COUNT (AUTO) 382 K/uL (150-450); RED BLOOD CELL COUNT(AUTO) 2.98 MIL/uL (4.5-6.0); WHITE BLOOD COUNT (AUTO) 9.4 K/uL (4.3-11.0)
[2021-05-13 14:18] LABS: ALANINE AMINOTRANSFERASE 18 U/L (12-78); ALBUMIN 1.9 g/dL (3.4-5.0); ALKALINE PHOSPHATASE 100 U/L (46-116); ASPARTATE AMINOTRANSFERASE 20 U/L (15-37); BILIRUBIN,DIRECT 0.1 mg/dL (0.0-0.2); BILIRUBIN,TOTAL 0.3 mg/dL (0.2-1.0); CALCIUM, SERUM 8.1 mg/dL (8.5-10.1); CARBON DIOXIDE 32 mmol/L (21-32); CHLORIDE 105 mmol/L (98-107); GLUCOSE 126 mg/dL (74-106); POTASSIUM 4.5 mmol/L (3.5-5.1); SODIUM SERUM 140 mmol/L (136-145); TOTAL PROTEIN, SERUM 6.6 g/dL (6.4-8.2); UREA NITROGEN, BLOOD 28 mg/dL (7-18)
[2021-05-13] MEDS ORDERED: IOHEXOL-350 100 ML VIAL IV ONE (15:08)
[2021-05-13] MEDS ORDERED: IV NS 0.9% 250 ML IV ONE (15:09)
[2021-05-13] MEDS ORDERED: IV NS 0.9% 2,000 ML IV ONE (15:30)
[2021-05-13] MEDS ORDERED: VANCOMYCIN 1 GM in IV D5W 250 ML IV ONE (15:30)
[2021-05-13] MEDS ORDERED: MEROPENEM 1,000 MG in IV NS 0.9% 100 ML IV ONE (15:30)
--- NOTE | 2021-05-13 15:32 | NUR ---
PT BACK FROM CT.
--- NOTE | 2021-05-13 15:43 | NUR ---
COVID ANTIGEN SWAB DONE AND SENT TO THE LAB
--- NOTE | 2021-05-13 15:47 | NUR ---
MOVE SHEET SUBMITTED AND CALLED FOR TELE BED.
--- NOTE | 2021-05-13 15:50 | NUR ---
[facility] CALLED CHARGE RN PAGED.
--- NOTE | 2021-05-13 16:37 | NUR ---
PT LAYIGN IN BED, AWAKE, VS STABLE. NEEDS MET
--- NOTE | 2021-05-13 18:18 | NUR ---
PT LAYING IN BED, VS STABLE
[2021-05-13] MEDS ORDERED: ENOXAPARIN SODIUM 40 MG/0.4 ML DISP.SYRIN SQ SCH (18:30)
[2021-05-13] MEDS ORDERED: ZOLPIDEM TARTRATE 5 MG TABLET PO PRN (18:30)
[2021-05-13] MEDS ORDERED: FLUCONAZOLE IN NS,PREMIX 100 MG in PREMIX 1 EA IV SCH (18:30)
[2021-05-13] MEDS ORDERED: MAG HYDROX/AL HYDROX/SIMETH 30 ML UDC PO PRN (18:30)
[2021-05-13] MEDS ORDERED: Z GUARD REMEDY 4 OZ OINT TP PRN (18:30)
[2021-05-13] MEDS ORDERED: ACETAMINOPHEN 325 MG TABLET PO PRN (18:30)
[2021-05-13] MEDS ORDERED: NA PHOS,M-B/NA PHOS,DI-BA 1 EA ENEMA RC PRN (18:30)
[2021-05-13] MEDS ORDERED: BISACODYL SUPP (10 MG) 10 MG/SUPP.RECT SUPP.RECT RC PRN (18:30)
[2021-05-13] MEDS ORDERED: HYDROCODONE/APAP 5/325MG TABLET PO PRN (18:30)
[2021-05-13] MEDS ORDERED: MAGNESIUM HYDROXIDE 30 ML UDC PO PRN (18:30)
[2021-05-13] MEDS ORDERED: POLYVINYL ALCOHOL 15 ML BOTTLE EACHEYE PRN (18:30)
[2021-05-13] MEDS ORDERED: ONDANSETRON HCL/PF 4 MG/2 ML VIAL IVP PRN (18:30)
--- NOTE | 2021-05-13 19:08 | NUR ---
RT NOTE PT RECEIVED ON 10 LPM T-PIECE. PT IS AWAKE. TITRATED FIO2 TO 5 LPM. PT TOLERATING WELL. ALEXA HAM AWARE. WILL MONITOR.
[2021-05-13] MEDS ORDERED: BACLOFEN (10 MG) 10 MG TABLET ONE (19:17)
[2021-05-13] MEDS: BACLOFEN (10 MG) 10 MG TABLET GT SCH (19:28)
[2021-05-13] MEDS: IV NS 0.9% 1,000 ML IV PRN (21:30)
--- NOTE | 2021-05-13 21:45 | NUR ---
RN NOTES RECEIVED REPORT FROM ER NURSE MEENAKSHI
--- NOTE | 2021-05-13 21:47 | NUR ---
REPORT GIVEN TO JOSHUA
--- NOTE | 2021-05-13 21:55 | NUR ---
2155 ADMITTED FROM ER 71 YEAR OLD MALE VIA RNEY WITH DX OF SEPSIS, PNA, RESPIRATORY FAILURE. AWAKE AND ABLE TO NOD HEAD TO SIMPLE QUESTIONS. TOTALLY DEPENDENT ON ALL ASPECTS OF ADLS. TRACHEOSTOMY INTACT AND SECURED AT MIDLINE CONNECTED TO T-PIECE WITH O2 AT 5L. O2 SATURATION 98% WHEN CHECKED. SUCTIONED WITH MODERATE AMOUNT OF WHITISH, THICK SECRETIONS. ADMISSION CARE RENDERED. NOTED WITH MULTIPLE DTIs AND WITH GENERALIZED BODY RASH. 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 MIDLINE ON RIGHT ARM INTACT AND PATENT. HERNANDEZ CATHETER WITH COPIOUS AMOUNT OF CLEAR YELLOW URINE. COMPLETE BED BATH PROVIDED. BILATERAL FEET ELEVATED ON PILLOWS. HOB ELEVATED FOR MAXIMUM OXYGENATION AND ASPIRATION PRECAUTION. TURNED AND REPOSITIONED FOR SKIN MANAGEMENT. CALL LIGHT PLACED WITHIN REACH. ISOLATION FOR COVID STRICTLY FOLLOWED.
--- NOTE | 2021-05-13 22:00 | NUR ---
PT TRANSPORTED TO ROOM 102 ON PSYCHIATRY ADULT PHYSICIAN PER ACLS PROTOCOL WITHOUT INCIDENT
--- NOTE | 2021-05-13 22:09 | NUR ---
RT NOTE PT TRANSFERRED TO [place]. PT CURRENTLY ON T-PIECE @ 5LPM. NO RESPIRATORY DISTRESS NOTED. WILL CONTINUE TO MONITOR.
[2021-05-13] MEDS: SIMVASTATIN 20 MG TABLET GT SCH (22:59)
[2021-05-13] MEDS: MEROPENEM 1 G in IV NS 0.9% 100 ML IV SCH (23:02)
[2021-05-14] VITALS: BP 105/56
[2021-05-14 04:00] VITALS: BP 103/63
[2021-05-14] MEDS ORDERED: VANCOMYCIN 1 GM VIAL ONE (04:34)
[2021-05-14] MEDS: VANCOMYCIN 1 GM in IV D5W 250 ML IV SCH ×2 (04:44→16:17)
[2021-05-14 05:51] LABS: BASOPHILS % (AUTO) 0.3 % (0.0-2.0); EOSINOPHILS % (AUTO) 3.2 % (0.0-6.0); HEMATOCRIT 30 % (39-51); HEMOGLOBIN 9.9 g/dL (13.5-17.5); LYMPHOCYTES # (AUTO) 0.8 K/uL (0.8-4.8); LYMPHOCYTES % (AUTO) 7.6 % (20.0-44.0); MEAN CORPUSCULAR HGB CONC 33 g/dl (31.0-36.0); MEAN CORPUSCULAR VOLUME 94 fL (80-96); MONOCYTES # (AUTO) 0.6 K/uL (0.1-1.30); MONOCYTES % (AUTO) 5.3 % (2.0-12.0); NEUTROPHILS # (AUTO) 9.2 K/uL (1.8-8.9); NEUTROPHILS % (AUTO) 83.6 % (43.0-81.0); PLATELET COUNT (AUTO) 434 K/uL (150-450); RED BLOOD CELL COUNT(AUTO) 3.19 MIL/uL (4.5-6.0)
[2021-05-14] MEDS: MEROPENEM 1 G in IV NS 0.9% 100 ML IV SCH ×3 (06:35→22:04)
[2021-05-14 06:51] LABS: CALCIUM, SERUM 8.2 mg/dL (8.5-10.1); CREATININE 0.9 mg/dL (0.6-1.3); PHOSPHORUS 3.1 mg/dL (2.5-4.9); POTASSIUM 4.3 mmol/L (3.5-5.1)
--- NOTE | 2021-05-14 06:56 | NUR ---
RN CLOSING NOTES PATIENT REMAIN STABLE THROUGH OUT THE SHIFT, NO SOB NOTED NOT IN DISTRESS, PT ON T-PIECE @ 5LPM, . PATIENT NOTED WITH COURTNEY MIDLINE AND LAC #18 PERIPHERAL LINE BOTH PATENT INTACT AND FLUSHED WITH NORMAL SALINE AND RUNNING WITH NS @ 75CC/HR, TOLERATED WELL. WITH PEG TUBE INTACT INPLACED, NO RESIDUAL NOTED UPON ASPIRATION. ALL DUE MEDS GIVEN PER MD'S ORDERED. ALL SAFETY PRECAUTION IMPLEMENTED. BED IS AT LOWEST POSITION AND LOCKED. BED ALARM ARMED. CALL LIGHT IS WITHIN REACH. WILL CONTINUE TO MONITOR
--- NOTE | 2021-05-14 07:35 | NUR ---
RN OPENING NOTES RECEIVED PATIENT, SLEEPING, BREATHING EVEN AND UNLABORED. NO SOB NOTED NOT IN DISTRESS, PT ON T-PIECE @ 5LPM, . PATIENT NOTED WITH COURTNEY MIDLINE AND LAC #18 PERIPHERAL LINE BOTH PATENT INTACT AND FLUSHED INFUSING NS @ 75CC/HR, TOLERATED WELL. WITH PEG TUBE INTACT AND IN PLACED, NO RESIDUAL NOTED UPON ASPIRATION. ALL SAFETY PRECAUTION IMPLEMENTED. BED IS AT LOWEST POSITION AND LOCKED. BED ALARM ON. CALL LIGHT IS WITHIN REACH OF PATIENT. WILL CONTINUE TO MONITOR PATIENT ACCORDINGLY.
[2021-05-14 08:00] VITALS: BP 98/55
[2021-05-14] MEDS ORDERED: TAMSULOSIN 0.4 MG CAP.SR.24H GT SCH (09:00)
[2021-05-14] MEDS ORDERED: TWOCAL HN 1,000 ML LIQUID GT SCH (09:00)
[2021-05-14] MEDS: DOCUSATE SODIUM 100 MG CAPSULE PO SCH (09:09)
[2021-05-14] MEDS: TAMSULOSIN 0.4 MG CAP.SR.24H PO SCH (09:09)
[2021-05-14] MEDS: CHOLECALCIFEROL (VITAMIN D 3) 400 UNIT TABLET GT SCH (09:09)
[2021-05-14] MEDS: LEVOTHYROXINE SODIUM 75 MCG TABLET GT SCH (09:09)
[2021-05-14] MEDS: BACLOFEN (10 MG) 10 MG TABLET GT SCH ×3 (09:10→16:17)
[2021-05-14] MEDS: PANTOPRAZOLE 40 MG TABLET.DR PO SCH (09:10)
[2021-05-14] MEDS: RIVAROXABAN 10 MG TABLET GT SCH (09:15)
[2021-05-14 09:39] LABS: IRON, SERUM 10 ug/dl (50-175); TOTAL IRON BINDING CAPACITY 135 ug/dl (250-450)
--- NOTE | 2021-05-14 10:36 | NUR ---
WOUND CARE CONSULT: PT PRESENTS WITH GENERALIZED RASH/SKIN CONDITION WITH PEELING SKIN, EDEMA TO FEET, LEFT BUTTOCK DEEP TISSUE INJUURY IN EVOLUTION, SACRAL INTACT DEEP TISSUE INJURY, BILATERAL HEEL INTACT BLISTERS/DEEP TISSUE INJURIES AND RT LOWER LEG/ANKLE AREA DISCOLORATION, ALL PRESENT ON ADMISSION. DISCUSSED GENERALIZED RASH/SKIN CONDITION WITH [employer]. DEFER TO PMD FOR SKIN CONDITION. RECOMMEND SURGICAL AND DPM CONSULTS FOR WOUNDS(CALLED TO DR MCGOWAN AND DR SCHOFIELD). RECOMMENDATIONS MADE FOR SKIN PROTECTION AND WOUND CARE. DISCUSSED WITH NURSING STAFF. FIRST STEP LOW AIRLOSS MATTRESS IS ON ORDER. MD IN AGREEMENT WITH PLAN OF CARE. Addendum: 05/14/21 at 1039 by HAROLDO CHANDLER WNDNU Amended: Links added.
[2021-05-14 12:00] VITALS: BP 114/54
[2021-05-14] MEDS: JEVITY 1.2 CAL 1,000 ML BOTTLE GT PRN (13:52)
[2021-05-14] MEDS: IV NS 0.9% 1,000 ML IV PRN (15:18)
[2021-05-14 16:00] VITALS: BP 110/50
--- NOTE | 2021-05-14 19:30 | NUR ---
RN OPENING NOTES RECEIVED PT IN BED, WITH EYES OPEN. AOx1, NONVERBAL. ON TRACH 5LPM AND TOLERATING WELL. NO SOB NOTED. NO S/SX OF RESPIRATORY DISTRESS NOTED. JEVITY RUNNING @50 ML/HR. COURTNEY MIDLINE RUNNING NS @ 75 ML/HR. LAC #18. IV IS INTACT, PATENT, AND FLUSHING WELL. SAFETY PRECAUTIONS IN PLACE: BED IN LOWEST, LOCKED POSITION, SIDERAILS UPx2, AND BRAKES ON. TABLE AND CALL LIGHT WITHIN REACH. WILL CONTINUE TO MONITOR.
[2021-05-14 20:00] VITALS: BP 96/50
--- NOTE | 2021-05-14 20:01 | NUR ---
RN CLOSING NOTES PATIENT REMAIN STABLE THROUGH OUT THE SHIFT, NO SOB NOTED NOT IN DISTRESS, PT ON T-PIECE @ 5LPM, . PATIENT NOTED WITH COURTNEY MIDLINE AND LAC #18 PERIPHERAL LINE BOTH PATENT INTACT INFUSING NS @ 75CC/HR, TOLERATED WELL. WITH PEG TUBE INTACT INPLACED, NO RESIDUAL NOTED UPON ASPIRATION. ALL DUE MEDS GIVEN PER MD'S ORDERED. KEPT PATIENT CLEAN AND DRY. ALL SAFETY PRECAUTION IMPLEMENTED. BED IS AT LOWEST POSITION AND LOCKED. BED ALARM ARMED. CALL LIGHT IS WITHIN REACH. ENDORSED TO ONCOMING NURSE FOR DINAH.
[2021-05-14] MEDS: SIMVASTATIN 20 MG TABLET GT SCH (21:43)
[2021-05-15] VITALS: BP 115/53
[2021-05-15 00:48] LABS: THYROID STIMULATING HORMONE 3.464 uIU/mL (0.358-3.74)
--- NOTE | 2021-05-15 03:34 | NUR ---
TITRATE O2 TO 3L. SPO2 99% NO RESPIRATORY DISTRESS NOTED AT THIS TIME. WILL CONTINUE TO MONITOR PT T/O SHIFT.
[2021-05-15 04:00] VITALS: BP 116/52
[2021-05-15] MEDS: VANCOMYCIN 1 GM in IV D5W 250 ML IV SCH (04:12)
[2021-05-15] MEDS: MEROPENEM 1 G in IV NS 0.9% 100 ML IV SCH ×3 (06:35→22:04)
--- NOTE | 2021-05-15 06:47 | NUR ---
RN CLOSING NOTES PT IN BED, WITH EYES OPEN. AOx1, NONVERBAL. ON TRACH 3LPM AND TOLERATING WELL. NO SOB NOTED. NO S/SX OF RESPIRATORY DISTRESS NOTED. JEVITY RUNNING @50 ML/HR. COURTNEY MIDLINE RUNNING NS @ 75 ML/HR. LAC #18. IV IS INTACT, PATENT, AND FLUSHING WELL. ALL NEEDS MET. PT KEPT CLEAN AND DRY. SAFETY PRECAUTIONS IN PLACE: BED IN LOWEST, LOCKED POSITION, SIDERAILS UPx2, AND BRAKES ON. TABLE AND CALL LIGHT WITHIN REACH. WILL ENDORSE TO ONCOMING SHIFT FOR DINAH.
[2021-05-15 06:48] LABS: BASOPHILS # (AUTO) 0.1 K/uL (0.0-0.2); BASOPHILS % (AUTO) 0.7 % (0.0-2.0); EOSINOPHILS % (AUTO) 3.9 % (0.0-6.0); HEMATOCRIT 28 % (39-51); HEMOGLOBIN 9.4 g/dL (13.5-17.5); LYMPHOCYTES # (AUTO) 1.1 K/uL (0.8-4.8); LYMPHOCYTES % (AUTO) 10.4 % (20.0-44.0); MEAN CORPUSCULAR HGB CONC 33 g/dl (31.0-36.0); MEAN CORPUSCULAR VOLUME 95 fL (80-96); MONOCYTES # (AUTO) 0.6 K/uL (0.1-1.30); MONOCYTES % (AUTO) 5.9 % (2.0-12.0); NEUTROPHILS # (AUTO) 8.5 K/uL (1.8-8.9); NEUTROPHILS % (AUTO) 79.1 % (43.0-81.0); PLATELET COUNT (AUTO) 458 K/uL (150-450); RED BLOOD CELL COUNT(AUTO) 2.98 MIL/uL (4.5-6.0); WHITE BLOOD COUNT (AUTO) 10.8 K/uL (4.3-11.0)
--- NOTE | 2021-05-15 07:30 | NUR ---
RN NOTE PT FOUND IN BED RESTING NONVERBAL AT THIS TIME A/O X 1. NO SIGN OF DISTRESS. PT ON 3LPM VIA TRACH T PIECE. PT ON TELE W/ SR/ST.PT RUNNING NS @75ML/HR VIA COURTNEY MIDLINE. PT RECEIVING JEVITY 1.2 @50ML/HR TOLERATING WELL NO RESIDUAL PATENT UPON ASSESSMENT. BED WHEELS LOCKED. SAFETY MEASURES OBSERVED. CALL LIGHT WITHIN REACH.
[2021-05-15 07:40] LABS: ALBUMIN 1.6 g/dL (3.4-5.0); BILIRUBIN,TOTAL 0.3 mg/dL (0.2-1.0); MAGNESIUM 2.3 mg/dL (1.8-2.4); PHOSPHORUS 2.8 mg/dL (2.5-4.9); POTASSIUM 4.3 mmol/L (3.5-5.1)
[2021-05-15 08:00] VITALS: BP 116/52
[2021-05-15] MEDS: IV NS 0.9% 1,000 ML IV PRN ×2 (08:08→22:05)
[2021-05-15] MEDS: CHOLECALCIFEROL (VITAMIN D 3) 400 UNIT TABLET GT SCH (09:16)
[2021-05-15] MEDS: DOCUSATE SODIUM 100 MG CAPSULE PO SCH (09:16)
[2021-05-15] MEDS: RIVAROXABAN 10 MG TABLET GT SCH (09:17)
[2021-05-15] MEDS: BACLOFEN (10 MG) 10 MG TABLET GT SCH ×3 (09:17→17:15)
[2021-05-15] MEDS: LEVOTHYROXINE SODIUM 75 MCG TABLET GT SCH (09:17)
[2021-05-15] MEDS: TAMSULOSIN 0.4 MG CAP.SR.24H PO SCH (09:17)
[2021-05-15] MEDS: PANTOPRAZOLE 40 MG TABLET.DR PO SCH (09:19)
[2021-05-15] MEDS: JEVITY 1.2 CAL 1,000 ML BOTTLE GT PRN (09:22)
--- NOTE | 2021-05-15 11:00 | NUR ---
RN NOTE PATIENT VANCO THROUGH OF 45 AT 0300, PER PHARMACIST VANCOMYCIN WAS GIVEN @ 0400, NOTIFIED DR. KATY MO.
[2021-05-15 12:00] VITALS: BP 121/54
--- NOTE | 2021-05-15 12:25 | NUR ---
HANK Note: HANK spoke with Hilaria and stated that pt's daughter Jessica ([phone]) would want to drop off Ipad to facetime with pt. Hilaria stated they will be able to coordinate this.
--- NOTE | 2021-05-15 12:25 | NUR ---
HANK Family Contact: SW spoke with pt's daughter Jessica ([phone]) and notified that she may drop off the Ipad to the unit and nurse will help to coordinate this.
--- NOTE | 2021-05-15 14:00 | NUR ---
RN NOTE CALLED CT FOR THE SCHEDULE CT ABDOMEN / PELVIS WITH CONTRAST, PER STAFF DEVELOPER "WILL GET TO THE PATIENT WHEN WE CAN"
[2021-05-15 16:00] VITALS: BP 121/64
--- NOTE | 2021-05-15 18:20 | NUR ---
RN NOTE WOUND TREATMENT DONE ORDERED.
--- NOTE | 2021-05-15 18:31 | NUR ---
RN NOTE PT FOUND IN BED RESTING NONVERBAL AT THIS TIME A/O X 1. NO SIGN OF DISTRESS. PT ON 3LPM VIA TRACH T PIECE. PT ON TELE W/ SR/ST.PT RUNNING NS @75ML/HR VIA COURTNEY MIDLINE. PT RECEIVING JEVITY 1.2 @60ML/HR GOAL OF 80CC/HR TOLERATING WELL NO RESIDUAL PATENT UPON ASSESSMENT.HERNANDEZ CATHETER NOTED, DRAINING VIA GRAVITY NO HEMATURIA NOTED. CT SCAN OF ABDOMEN AND PELVIS WITH CONTRAST NOT DONE, DR. BURNS NOTIFIED, CONSENT FOR US GUIDED THORACENTESIS OBTAINED FROM JOCELYN, BED WHEELS LOCKED. SAFETY MEASURES OBSERVED. WILL ENDORSE TO NOC SHIFT.
--- NOTE | 2021-05-15 19:28 | NUR ---
RN NOTE RECEIVED PATIENT IN BED, SLEEPING, AROUSABLE TO NAME AND TOUCH. NON-VERBAL AT THIS TIME. BREATHING EVEN AND UNLABORED. NO SOB NOTED. HOB ELEVATED 35 DEGREES. NOTED WITH TRACH WITH T-PIECE. ON 4L/MIN. ON TELE MONITORING. SINUS RHYTHM AT 80 BPM. SKIN WARM AND DRY. NOTED WITH RIGHT UPPER ARM MIDLINE RUNNING NS AT 75 CC/HR. NOTED WITH G-TUBE. RUNNING JEVITY 1.2 AT 60 CC/HR. MINIMAL RESIDUAL. NOTED WITH HERNANDEZ CATHETER IN PLACE. NO BLEEDING NOTED. NO HEMATURIA NOTED. BED LOW, IN LOCKED POSITION. CALL LIGHT WITHIN REACH.
[2021-05-15 20:00] VITALS: BP 133/68
[2021-05-15] MEDS: SIMVASTATIN 20 MG TABLET GT SCH (22:03)
[2021-05-16] VITALS: BP 137/68
--- NOTE | 2021-05-16 02:31 | NUR ---
RN NOTE ENDORSEMENT TO [place] LIU
--- NOTE | 2021-05-16 02:36 | NUR ---
CHANGE OF CARE: RECEIVED REPORT. NO CHANGE IN CONDITION. PATIENT STABLE AT THIS TIME.
[2021-05-16 04:00] VITALS: BP 119/68
[2021-05-16] MEDS: MEROPENEM 1 G in IV NS 0.9% 100 ML IV SCH ×3 (06:26→22:32)
[2021-05-16] MEDS: PANTOPRAZOLE 40 MG TABLET.DR PO SCH (06:31)
--- NOTE | 2021-05-16 06:42 | NUR ---
RN CLOSING NOTE: PATIENT IN BED EYES OPEN. RESPONDS TO VERBAL COMMANDS WITH HEAD NODS. T-PIECE IN PLACE WITH AEROSOL O2 @ 4LPM. COARSE RHONCHI SCATTERED THROUGHOUT BILATERAL LUNG CARVER. PATIENT SUCTIONED VIA CLOSED SYSTEM SUCTION CATH: MODERATE AMOUNT OF YELLOW-TINGED SPUTUM EXTRACTED. PATIENT IN NAD AND VSS AT THIS TIME. RLE NOTED TO HAVE 3+ PITTING EDEMA. HERNANDEZ CATHETER IN PLACE, PATENT AND DRAINING CLEAR YELLOW URINE. NO S/SX OF IRRITATION/DRAINAGE TO OR SURROUNDING F/C INSERTION SITE. COURTNEY MIDLINE PATENT INFUSING FLUIDS PER ORDER. NO S/SX OF INFILTRATION/ERYTHEMA TO OR SURROUNDING IV CATH INSERTION SITE. DRESSING C/D/I. MEPILEX APPLIED TO B HEEL AND SACRUM ULCERS THAT HAVE BEEN PRESENT SINCE ADMISSION. G-TUBE IN PLACE, PATENT, RESIDUAL 20ML, FLUSHED. BED IN LOW, LOCKED POSITION, HOB ELEVATED 45 DEGREES. CALL LIGHT WITHIN REACH.
[2021-05-16 07:09] LABS: BASOPHILS # (AUTO) 0.1 K/uL (0.0-0.2); BASOPHILS % (AUTO) 0.6 % (0.0-2.0); EOSINOPHILS % (AUTO) 5.6 % (0.0-6.0); HEMATOCRIT 24 % (39-51); HEMOGLOBIN 8.2 g/dL (13.5-17.5); LYMPHOCYTES # (AUTO) 0.8 K/uL (0.8-4.8); LYMPHOCYTES % (AUTO) 8.4 % (20.0-44.0); MEAN CORPUSCULAR HGB CONC 34 g/dl (31.0-36.0); MEAN CORPUSCULAR VOLUME 95 fL (80-96); MONOCYTES # (AUTO) 0.5 K/uL (0.1-1.30); NEUTROPHILS # (AUTO) 7.7 K/uL (1.8-8.9); NEUTROPHILS % (AUTO) 80.4 % (43.0-81.0); PLATELET COUNT (AUTO) 424 K/uL (150-450); RED BLOOD CELL COUNT(AUTO) 2.55 MIL/uL (4.5-6.0); WHITE BLOOD COUNT (AUTO) 9.6 K/uL (4.3-11.0)
--- NOTE | 2021-05-16 07:26 | NUR ---
oxygen flow decreased to 2lpm via t-piece due to 100% spo2. Addendum: 05/16/21 at 0726 by ABDELRAHMAN MUNOZ RT Amended: Links added.
[2021-05-16 07:28] LABS: BILIRUBIN,TOTAL 0.2 mg/dL (0.2-1.0); CALCIUM, SERUM 7.6 mg/dL (8.5-10.1); CREATININE 0.8 mg/dL (0.6-1.3); PHOSPHORUS 2.2 mg/dL (2.5-4.9); TOTAL PROTEIN, SERUM 5.6 g/dL (6.4-8.2)
--- NOTE | 2021-05-16 07:37 | NUR ---
RN OPENING NOTES PATIENT IS AWAKE IN BED RESTING, A/O X0. NO S/S OF PAIN NOTED AT THIS TIME. PATIENT HAVE T-PIECE 4L/MIN., NO DISTRESS OR SHORTNESS OF BREATH NOTED. IV ACCESS COURTNEY MIDLINE, INTACT AND PATENT, FLUSHING WELL. PATIENT HAVE HERNANDEZ CATH, IN PLACE AND DRAINING WELL. PATIENT HAVE EXTERNAL QUALITY FACILITATOR WITH CURRENT READING OF S.R., NO CARDIAC DISTRESS NOTED. FALL AND SAFETY MEASURES IN PLACE, BED ALARM ON, BED IN LOW AND LOCK POSITION, CALL LIGHT AND TABLE WITHIN EASY REACH, SIDE RAIL UP X2. WILL CONTINUE TO MONITOR.
[2021-05-16 07:40] LABS: ALBUMIN 1.4 g/dL (3.4-5.0)
[2021-05-16 08:00] VITALS: BP 120/60
[2021-05-16] MEDS: CHOLECALCIFEROL (VITAMIN D 3) 400 UNIT TABLET GT SCH (08:30)
[2021-05-16] MEDS: TAMSULOSIN 0.4 MG CAP.SR.24H PO SCH (08:30)
[2021-05-16] MEDS: BACLOFEN (10 MG) 10 MG TABLET GT SCH ×3 (08:30→17:15)
[2021-05-16] MEDS: DOCUSATE SODIUM 100 MG CAPSULE PO SCH (08:30)
[2021-05-16] MEDS: LEVOTHYROXINE SODIUM 75 MCG TABLET GT SCH (08:30)
[2021-05-16] MEDS ORDERED: VANCOMYCIN 0.75 GM in IV D5W 250 ML IV SCH (09:00)
--- NOTE | 2021-05-16 09:48 | NUR ---
INR TOO HIGH FOR THORACENTESIS. RNTHAO WAS INFORMED. SHE WILL CONTACT ORDERING MD FOR MEDS TO LOWER INR AND WILL ORDER STAT BLOOD DRAW AFTER ADMINISTRATION OF MEDS. RN WAS INFORMED THAT WE NEED THE LAB RESULTS BEFORE 14:00. THORACENTESIS CAN NOT BE DONE AFTER 3PM DUE TO RISKS OF PNEUMOTHORAX. ALSO RN WAS INFORMED THAT THERE IS NO RADIOLOGIST PRESENT AT HOSPITAL OVER WEEKENDS. PERFORMING THORACENTESIS WILL DEPEND ON RADIOLOGIST CREDIT AND LOAN COLLECTIONS SUPERVISOR'S AVAILABILITY.
[2021-05-16] MEDS ORDERED: NEUTRA PHOS 1 POWD.PACKET GT ONE (10:30)
[2021-05-16] MEDS: MICAFUNGIN SODIUM 100 MG in IV NS 0.9% 100 ML IV SCH (11:02)
[2021-05-16 12:00] VITALS: BP 120/53
[2021-05-16 12:47] LABS: BILIRUBIN,URINE NEGATIVE (NEGATIVE); COLOR,URINE YELLOW (YELLOW); LEUKOCYTE ESTERASE ,URINE NEGATIVE (NEGATIVE); NITRITE, URINE NEGATIVE (NEGATIVE); PROTEIN,URINE 30 mg/dl (NEGATIVE); UGLUCOSE NEGATIVE (NEGATIVE); UROBILINOGEN,URINE 0.2 EU/dL (0.2)
[2021-05-16 12:49] LABS: BACTERIA,URINE Rare /HPF (None Seen); SQUAMOUS EPITHELIAL CELL,UR Few /HPF (None Seen); WBC,URINE NONE SEEN /HPF (0-3)
[2021-05-16] MEDS: IV NS 0.9% 1,000 ML IV PRN (14:54)
[2021-05-16 16:00] VITALS: BP 112/53
[2021-05-16] MEDS: JEVITY 1.2 CAL 1,000 ML BOTTLE GT PRN (16:22)
--- NOTE | 2021-05-16 19:08 | NUR ---
RN CLOSING NOTES PATIENT IS AWAKE IN BED RESTING, A/O X0. NO S/S OF PAIN NOTED AT THIS TIME. PATIENT HAVE T-PIECE 4L/MIN., NO DISTRESS OR SHORTNESS OF BREATH NOTED. IV ACCESS COURTNEY MIDLINE, INTACT AND PATENT, FLUSHING WELL. PATIENT HAVE HERNANDEZ CATH, IN PLACE AND DRAINING WELL. PATIENT HAVE EXTERNAL LUMBER KILN OPERATOR WITH CURRENT READING OF S.R., NO CARDIAC DISTRESS NOTED. SCHEDULED MEDS ADMINISTERED. FALL AND SAFETY MEASURES IN PLACE, BED ALARM ON, BED IN LOW AND LOCK POSITION, CALL LIGHT AND TABLE WITHIN EASY REACH, SIDE RAIL UP X2. WILL ENDORSE TO TOMATO PULPER OPERATOR.
--- NOTE | 2021-05-16 19:30 | NUR ---
RN OPENING NOTE PATIENT IN BED. EYES CLOSED, EASILY AWAKENED. PATIENT ABLE TO RESPOND WITH NODDING HEAD OR MOVING HEAD SIDE TO SIDE TO SAY YES OR NO, PATIENT ABLE TO MOUTH SIMPLE WORDS AT TIMES. PATIENT IS WEARING A R PIECE ON 4LPM ON HUMIDIFIER. PATIENT SR ON TELE MONITOR. HERNANDEZ CATHETER IN PLACE. PATIENT HAS JEVITY 1.2 RUNNING AT 50 ML/HR. NO RESIDUAL, TOLERATING WELL. PATIENT HAS A COURTNEY MIDLINE WITH NS @ 75 ML/HR. NO PAIN AT THIS TIME. SAFETY MEASURES IN PLACE: BED LOCKED AND IN LOWEST POSITION, CALL LIGHT WITHIN REACH, SIDE RAILS UP. WILL MONITOR PATIENT CLOSELY. ISOLATION PRECAUTIONS IN PLACE.
[2021-05-16 20:00] VITALS: BP 105/56
[2021-05-16] MEDS: SIMVASTATIN 20 MG TABLET GT SCH (22:32)
[2021-05-17] VITALS: BP 100/51
[2021-05-17 04:00] VITALS: BP 126/64
[2021-05-17] MEDS: IV NS 0.9% 1,000 ML IV PRN (06:05)
[2021-05-17] MEDS: MEROPENEM 1 G in IV NS 0.9% 100 ML IV SCH ×3 (06:05→22:16)
--- NOTE | 2021-05-17 06:53 | NUR ---
RN CLOSING NOTE PATIENT IN BED. AWAKE. PATIENT ABLE TO RESPOND WITH NODDING HEAD OR MOVING HEAD SIDE TO SIDE TO SAY YES OR NO, PATIENT ABLE TO MOUTH SIMPLE WORDS AT TIMES. PATIENT IS WEARING A R PIECE ON 2LPM ON HUMIDIFIER. TITRATED DOWN. 100% O2 SAT. PATIENT SR 76 BPM ON TELE MONITOR. HERNANDEZ CATHETER IN PLACE. PATIENT HAS JEVITY 1.2 RUNNING AT 60 ML/HR. INCREASED- GOAL 80 ML/HR. NO RESIDUAL, TOLERATING WELL. PATIENT HAS A COURTNEY MIDLINE WITH NS @ 75 ML/HR. NO PAIN AT THIS TIME. SAFETY MEASURES IN PLACE: BED LOCKED AND IN LOWEST POSITION, CALL LIGHT WITHIN REACH, SIDE RAILS UP. ISOLATION PRECAUTIONS IN PLACE. ALL NEEDS MET AND ATTENDED, ALL ORDERS CARRIED OUT.
--- NOTE | 2021-05-17 07:15 | NUR ---
RN OPENING NOTES; RECEIVED PT IN BED SLEEPING. A/OX1, CAN MOUTH WORDS. NO SIGNS OF SOB OR DISTRESS. PT ON T PIECE @ 2LPM. JEVITY 1.2 FEEDING NOTED, RUNNING WELL. COURTNEY STUBBS NOTED RUNNING NS @75ML. ALL SAFETY MEASURES RENDERED, BED LOCKED IN LOWEST POS. BEDRAILSX3 WITH CALL LIGHT WITHIN REACH. WILL CONTINUE TO MONITOR.
[2021-05-17 07:29] LABS: BILIRUBIN,TOTAL 0.2 mg/dL (0.2-1.0); CALCIUM, SERUM 7.7 mg/dL (8.5-10.1); CREATININE 0.7 mg/dL (0.6-1.3); PHOSPHORUS 2.1 mg/dL (2.5-4.9); POTASSIUM 3.7 mmol/L (3.5-5.1); TOTAL PROTEIN, SERUM 5.4 g/dL (6.4-8.2)
[2021-05-17 07:41] LABS: ALBUMIN 1.4 g/dL (3.4-5.0)
[2021-05-17 08:00] VITALS: BP 131/65
[2021-05-17] MEDS: BACLOFEN (10 MG) 10 MG TABLET GT SCH ×3 (08:43→16:12)
[2021-05-17] MEDS: PANTOPRAZOLE 40 MG TABLET.DR PO SCH (08:43)
[2021-05-17] MEDS: CHOLECALCIFEROL (VITAMIN D 3) 400 UNIT TABLET GT SCH (08:43)
[2021-05-17] MEDS: MICAFUNGIN SODIUM 100 MG in IV NS 0.9% 100 ML IV SCH (08:43)
[2021-05-17] MEDS: LEVOTHYROXINE SODIUM 75 MCG TABLET GT SCH (08:43)
[2021-05-17] MEDS: TAMSULOSIN 0.4 MG CAP.SR.24H PO SCH (08:45)
[2021-05-17] MEDS: DOCUSATE SODIUM 100 MG CAPSULE PO SCH (08:45)
--- NOTE | 2021-05-17 08:54 | NUR ---
RN NOTES; VANCO NOT GIVEN. VANCO TROUGH IS 25 TAKEN TODAY. WILL CONTINUE TO MONITOR.
[2021-05-17] MEDS ORDERED: VANCOMYCIN 0.75 GM in IV D5W 250 ML IV SCH (09:00)
--- NOTE | 2021-05-17 10:11 | NUR ---
NOTIFIED RN RYAN @ EXT. [phone] THAT US GUIDED THORA WILL BE DONE TOMORROW PER RADIOLOGIST DR. RODRIGUEZ.
[2021-05-17] MEDS ORDERED: NEUTRA PHOS 1 POWD.PACKET GT ONE (11:00)
[2021-05-17 12:00] VITALS: BP 120/63
[2021-05-17 16:00] VITALS: BP 117/65
[2021-05-17] MEDS: JEVITY 1.2 CAL 1,000 ML BOTTLE GT PRN (16:12)
--- NOTE | 2021-05-17 18:33 | NUR ---
RN CLOSING NOTE PATIENT IN BED, RESTING. PT A/OX2, PT ABLE TO MAKE NEEDS KNOWN. PT ON A T PIECE OAT 2LPM ON HUMIDIFIER AND TOLERATING IT WELL SATTING AT 100%. HERNANDEZ CATHETER IN PLACE, PATENT AND DRAINING YELLOW COLOR URINE. GTUBE FEEDING JEVITY 1.2 RUNNING AT 80 ML/HR. NO RESIDUAL, TOLERATING WELL. PATIENT HAS A COURTNEY MIDLINE WITH NS @ 75 ML/HR. NO PAIN AT THIS TIME. SAFETY MEASURES IN PLACE: BED LOCKED AND IN LOWEST POSITION, CALL LIGHT WITHIN REACH, SIDE RAILS UP. ISOLATION PRECAUTIONS IN PLACE. ALL NEEDS MET AND ATTENDED, ALL ORDERS CARRIED OUT.
--- NOTE | 2021-05-17 19:22 | NUR ---
RN OPENING NOTES RECEIVED PATIENT IN BED, AWAKE, ALERT AND VERBALLY RESPONSIVE, NO SOB NOTED NOT IN DISTRESS, A/O X 1 PT ON T-PIECE @ 4LPM . PATIENT NOTED WITH COURTNEY MID LINE, PATENT INTACT AND FLUSHED WITH NORMAL SALINE. GTUBE JEVITY 1.2 @ 80ML/HR. GTUBE INPLACED INTACT, NO RESIDUAL NOTED UPON ASPIRATION, HOB KEPT ELEVATED. ALL SAFETY PRECAUTION IMPLEMENTED. BED IS AT LOWEST POSITION AND LOCKED. BED ALARM ARMED. CALL LIGHT IS WITHIN REACH. WILL CONTINUE TO MONITOR
[2021-05-17 20:00] VITALS: BP 127/67
[2021-05-17] MEDS: SIMVASTATIN 20 MG TABLET GT SCH (22:16)
[2021-05-18] VITALS: BP 128/61
[2021-05-18] MEDS: IV NS 0.9% 1,000 ML IV PRN (02:23)
[2021-05-18 04:00] VITALS: BP 118/51
--- NOTE | 2021-05-18 04:00 | NUR ---
RN NOTES PATIENT NOTED WITH TEMPERATURE OF 93.2 RECTALLY, PATIENT NOT IN DISTRESS, DENIES THAT HE IS FEELING COLD, APPLY WARM BLANKET, WILL CONTINUE TO MONITOR.
--- NOTE | 2021-05-18 05:00 | NUR ---
RN NOTES TEMPERATURE RECHECKED OBTAINED 93.2 RECTALLY, APPLY BEAR HUG BLANKET, PATIENT TOLERATED WELL. WILL CONTINUE TO MONITOR.
--- NOTE | 2021-05-18 06:00 | NUR ---
RN NOTES TEMPERATURE RECHECKED OBTAINED 97.5 RECTALLY, PATIENT COMFORTABLE, NOT IN DISTRESS. WILL CONTINUE TO MONITOR.
[2021-05-18] MEDS: MEROPENEM 1 G in IV NS 0.9% 100 ML IV SCH ×3 (07:03→22:39)
[2021-05-18 07:24] LABS: CALCIUM, SERUM 7.4 mg/dL (8.5-10.1); CREATININE 0.7 mg/dL (0.6-1.3); PHOSPHORUS 2.2 mg/dL (2.5-4.9); POTASSIUM 4.2 mmol/L (3.5-5.1)
--- NOTE | 2021-05-18 07:25 | NUR ---
RN CLOSING NOTES NO SIGNIFICANT CHANGES THROUGH OUT THE SHIFT, NO SOB NOTED NOT IN DISTRESS, A/O X 1 PT ON T-PIECE @ 4LPM . PATIENT NOTED WITH COURTNEY MID LINE, PATENT INTACT AND FLUSHED WITH NORMAL SALINE, HOB KEPT ELEVATED. ALL DUE MEDS GIVEN ORDERED. ALL SAFETY PRECAUTION IMPLEMENTED. BED IS AT LOWEST POSITION AND LOCKED. BED ALARM ARMED. CALL LIGHT IS WITHIN REACH. WILL CONTINUE TO MONITOR
--- NOTE | 2021-05-18 07:26 | NUR ---
RN OPENING NOTES RECEIVED PATIENT IN BED, AWAKE, ALERT AND ORIENTED X1 NO SOB OR DISTRESS NOTE, PT ON T-PIECE 4LPM . PATIENT NOTED WITH COURTNEY MID LINE, PATENT INTACT AND FLUSHED WITH NORMAL SALINE. RUNNING NS 75 CC/HR GTUBE JEVITY 1.2 @ 80ML/HR. NO RESIDUAL NOTED UPON ASPIRATION, HOB KEPT ELEVATED. ALL SAFETY PRECAUTION IMPLEMENTED. BED IS AT LOWEST POSITION AND LOCKED. BED ALARM ARMED ON. CALL LIGHT IS WITHIN REACH. WILL CONTINUE TO MONITOR
[2021-05-18 07:53] LABS: BASOPHILS % (AUTO) 0.5 % (0.0-2.0); EOSINOPHILS % (AUTO) 10.5 % (0.0-6.0); HEMATOCRIT 25 % (39-51); HEMOGLOBIN 8.5 g/dL (13.5-17.5); LYMPHOCYTES # (AUTO) 0.8 K/uL (0.8-4.8); LYMPHOCYTES % (AUTO) 12.5 % (20.0-44.0); MEAN CORPUSCULAR HGB CONC 34 g/dl (31.0-36.0); MEAN CORPUSCULAR VOLUME 94 fL (80-96); MONOCYTES # (AUTO) 0.4 K/uL (0.1-1.30); MONOCYTES % (AUTO) 6.1 % (2.0-12.0); NEUTROPHILS # (AUTO) 4.4 K/uL (1.8-8.9); NEUTROPHILS % (AUTO) 70.4 % (43.0-81.0); PLATELET COUNT (AUTO) 392 K/uL (150-450); RED BLOOD CELL COUNT(AUTO) 2.69 MIL/uL (4.5-6.0); WHITE BLOOD COUNT (AUTO) 6.2 K/uL (4.3-11.0)
[2021-05-18] MEDS: BACLOFEN (10 MG) 10 MG TABLET GT SCH ×3 (08:52→16:16)
[2021-05-18] MEDS: TAMSULOSIN 0.4 MG CAP.SR.24H PO SCH (08:52)
[2021-05-18] MEDS: DOCUSATE SODIUM 100 MG CAPSULE PO SCH (08:52)
[2021-05-18] MEDS: LEVOTHYROXINE SODIUM 75 MCG TABLET GT SCH (08:52)
[2021-05-18] MEDS: CHOLECALCIFEROL (VITAMIN D 3) 400 UNIT TABLET GT SCH (08:52)
[2021-05-18] MEDS: MICAFUNGIN SODIUM 100 MG in IV NS 0.9% 100 ML IV SCH (08:53)
[2021-05-18] MEDS: PANTOPRAZOLE 40 MG TABLET.DR PO SCH (08:55)
[2021-05-18] MEDS ORDERED: VANCOMYCIN 0.75 GM in IV D5W 250 ML IV SCH (09:00)
--- NOTE | 2021-05-18 10:30 | NUR ---
RN NOTE PT TOLERATED THORACENTESIS VERY WELL, PLEURAL FLUID TAKEN TO THE LAB WILL CONTINUE TO MONITOR
[2021-05-18 12:11] VITALS: BP 113/58
[2021-05-18] MEDS: JEVITY 1.2 CAL 1,000 ML BOTTLE GT PRN (12:29)
[2021-05-18] MEDS ORDERED: NEUTRA PHOS 1 POWD.PACKET GT ONE (13:00)
[2021-05-18 16:08] VITALS: BP 113/52
--- NOTE | 2021-05-18 18:27 | NUR ---
RN CLOSING NOTES PATIENT REMAINS IN BED, AWAKE, ALERT AND ORIENTED X1 NO SOB OR DISTRESS NOTE, PT ON T-PIECE 4LPM . PATIENT NOTED WITH COURTNEY MID LINE, PATENT INTACT AND FLUSHED WITH NORMAL SALINE. RUNNING NS 75 CC/HR GTUBE JEVITY 1.2 @ 50ML/HR. NO RESIDUAL NOTED UPON ASPIRATION, HOB KEPT ELEVATED. ALL SAFETY PRECAUTION IMPLEMENTED. BED IS AT LOWEST POSITION AND LOCKED. BED ALARM ARMED ON. CALL LIGHT IS WITHIN REACH. WILL ENDORSE TO LIFE INSURANCE SALESPERSONCAT CRACKER OPERATOR
--- NOTE | 2021-05-18 19:51 | NUR ---
RN OPENING NOTES RECEIVED CARE OF PATIENT WHILE PATIENT IN BED, A/O X1, BUT OPENS EYES TO NAME. NO SOB OR DISTRESS NOTE, PT ON T-PIECE 4LPM . PATIENT NOTED WITH COURTNEY MID LINE, PATENT INTACT AND FLUSHED WITH NORMAL SALINE. RUNNING NS 75 CC/HR. GTUBE JEVITY 1.2 @ 50ML/HR. NO RESIDUAL NOTED UPON ASPIRATION, HOB KEPT ELEVATED. NO SIGNIFICANT FINDINGS UPON INITIAL NURSING ASSESSMENTS. ALL DUE ISOLATION PRECAUTIONS IMPLEMENTED. ALL SAFETY PRECAUTION IMPLEMENTED. BED IS AT LOWEST POSITION AND LOCKED. BED ALARM ARMED ON. CALL LIGHT IS WITHIN REACH. WILL CONTINUE TO MONITOR.
[2021-05-18 20:00] VITALS: BP 105/61
[2021-05-18] MEDS: SIMVASTATIN 20 MG TABLET GT SCH (22:39)
[2021-05-19] VITALS: BP 121/64
[2021-05-19 04:00] VITALS: BP 125/72
--- NOTE | 2021-05-19 07:28 | NUR ---
RN CLOSING NOTES ENDORSED CARE OF PATIENT WHILE PATIENT IN BED, A/O X1, BUT OPENS EYES TO NAME. NO SOB OR DISTRESS NOTE, PT ON T-PIECE 4LPM, O2 SAT 99%, NO SOB NOTED. COURTNEY MID LINE, PATENT INTACT AND FLUSHED WITH NORMAL SALINE. RUNNING NS 75 CC/HR. GTUBE JEVITY 1.2 @ 50ML/HR. NO RESIDUAL NOTED ASPIRATION THROUGHOUT SHIFT, HOB KEPT ELEVATED. NO SIGNIFICANT FINDINGS UPON ALL NURSING ASSESSMENTS. ALL DUE ISOLATION PRECAUTIONS IMPLEMENTED. ALL DUE MEDS GIVEN, ALL NEEDS ATTENDED TO. ALL SAFETY PRECAUTION IMPLEMENTED. BED IS AT LOWEST POSITION AND LOCKED. BED ALARM ARMED ON. CALL LIGHT IS WITHIN REACH. ENDORSED TO AM NURSE FOR DINAH.
[2021-05-19 07:33] LABS: BASOPHILS # (AUTO) 0.1 K/uL (0.0-0.2); BASOPHILS % (AUTO) 0.8 % (0.0-2.0); EOSINOPHILS % (AUTO) 13.4 % (0.0-6.0); HEMATOCRIT 27 % (39-51); LYMPHOCYTES # (AUTO) 1.4 K/uL (0.8-4.8); LYMPHOCYTES % (AUTO) 15.1 % (20.0-44.0); MEAN CORPUSCULAR HGB CONC 34 g/dl (31.0-36.0); MEAN CORPUSCULAR VOLUME 93 fL (80-96); MONOCYTES # (AUTO) 0.8 K/uL (0.1-1.30); MONOCYTES % (AUTO) 8.5 % (2.0-12.0); NEUTROPHILS # (AUTO) 5.8 K/uL (1.8-8.9); NEUTROPHILS % (AUTO) 62.2 % (43.0-81.0); PLATELET COUNT (AUTO) 476 K/uL (150-450); RED BLOOD CELL COUNT(AUTO) 2.88 MIL/uL (4.5-6.0); WHITE BLOOD COUNT (AUTO) 9.4 K/uL (4.3-11.0)
[2021-05-19 08:00] VITALS: BP 125/75
[2021-05-19 08:01] LABS: CALCIUM, SERUM 7.5 mg/dL (8.5-10.1); CREATININE 0.7 mg/dL (0.6-1.3); PHOSPHORUS 2.5 mg/dL (2.5-4.9); POTASSIUM 4.5 mmol/L (3.5-5.1)
[2021-05-19] MEDS: CHOLECALCIFEROL (VITAMIN D 3) 400 UNIT TABLET GT SCH (08:03)
[2021-05-19] MEDS: DOCUSATE SODIUM 100 MG CAPSULE PO SCH (08:03)
[2021-05-19] MEDS: BACLOFEN (10 MG) 10 MG TABLET GT SCH ×3 (08:03→16:36)
[2021-05-19] MEDS: PANTOPRAZOLE 40 MG TABLET.DR PO SCH (08:03)
[2021-05-19] MEDS: TAMSULOSIN 0.4 MG CAP.SR.24H PO SCH (08:03)
[2021-05-19] MEDS: LEVOTHYROXINE SODIUM 75 MCG TABLET GT SCH (08:03)
[2021-05-19] MEDS: MEROPENEM 1 G in IV NS 0.9% 100 ML IV SCH ×3 (08:03→22:40)
[2021-05-19] MEDS: MICAFUNGIN SODIUM 100 MG in IV NS 0.9% 100 ML IV SCH (09:18)
[2021-05-19 12:00] VITALS: BP 99/70
[2021-05-19 16:00] VITALS: BP 120/48
--- NOTE | 2021-05-19 18:54 | NUR ---
RN NOTE PATIENT REMAINS IN BED, AWAKE, A&OX1-2. PATIENT WITH T PIECE AND 4L O2 WITH NO SIGNS OF LABORED BREATHING AT THIS TIME. HERNANDEZ CATHETER IN PLACE. G TUBE IN PLACE RUNNING JEVITY 1.2 AT 50 CC/HR. COURTNEY MIDLINE IN PLACE. ALL NEEDS ATTENDED DURING SHIFT. BED LOCKED AND IN LOWEST POSITION, CALL LIGHT WITHIN REACH, 3 SIDE RAILS UP. WILL ENDORSE TO GLASS LATHE OPERATOR NURSE.
--- NOTE | 2021-05-19 19:33 | NUR ---
RN OPENING NOTES RECEIVED CARE OF PATIENT WHILE PATIENT IN BED, A/O X1, BUT OPENS EYES TO NAME. NO SOB OR DISTRESS NOTE, PT ON T-PIECE 4LPM. COURTNEY MID LINE, PATENT, INTACT AND FLUSHED WITH NORMAL SALINE. RUNNING NS 75 CC/HR. GTUBE JEVITY 1.2 @ 50ML/HR. NO RESIDUAL NOTED UPON ASPIRATION, HOB KEPT ELEVATED. NO SIGNIFICANT FINDINGS UPON INITIAL NURSING ASSESSMENTS. ALL DUE ISOLATION PRECAUTIONS IMPLEMENTED. ALL SAFETY PRECAUTION IMPLEMENTED. BED IS AT LOWEST POSITION AND LOCKED. BED ALARM ARMED ON. CALL LIGHT IS WITHIN REACH. WILL CONTINUE TO MONITOR.
[2021-05-19 20:00] VITALS: BP 116/59
[2021-05-19] MEDS: SIMVASTATIN 20 MG TABLET GT SCH (22:39)
[2021-05-20] VITALS: BP 125/60
[2021-05-20] MEDS: JEVITY 1.2 CAL 1,000 ML BOTTLE GT PRN (03:30)
[2021-05-20 04:00] VITALS: BP 126/59
--- NOTE | 2021-05-20 06:45 | NUR ---
RN CLOSING NOTES WILL ENDORSE CARE OF PATIENT WHILE PATIENT IN BED, A/O X1, OPENS EYES TO NAME. PATIENT ON T-PIECE 4LPM, O2 SAT 100%, NO SOB NOTED, NO DISTRESS NOTED. NO SIGNIFICANT FINDINGS UPON ALL NURSING ASSESSMENTS. COURTNEY MID LINE, PATENT INTACT AND FLUSHED WITH NS. GTUBE JEVITY 1.2 @ 50ML/HR, NO RESIDUAL NOTED ASPIRATION THROUGHOUT SHIFT, HOB KEPT ELEVATED. ALL DUE ISOLATION PRECAUTIONS IMPLEMENTED. ALL DUE MEDS GIVEN, ALL NEEDS ATTENDED TO. ALL SAFETY PRECAUTION IMPLEMENTED. BED IS AT LOWEST POSITION AND LOCKED. BED ALARM ARMED ON. CALL LIGHT IS WITHIN REACH. WILL ENDORSE TO AM NURSE FOR DINAH.
--- NOTE | 2021-05-20 07:16 | NUR ---
placed into 2 lpm via t-piece due to 100% spo2 on 3 lpm Addendum: 05/20/21 at 0719 by ABDELRAHMAN MUNOZ RT Amended: Links added.
[2021-05-20 07:28] LABS: CALCIUM, SERUM 8.2 mg/dL (8.5-10.1); CREATININE 0.8 mg/dL (0.6-1.3); MAGNESIUM 2.1 mg/dL (1.8-2.4); PHOSPHORUS 2.8 mg/dL (2.5-4.9); POTASSIUM 4.5 mmol/L (3.5-5.1)
--- NOTE | 2021-05-20 07:30 | NUR ---
RN OPEN PATIENT RECEIVED IN BED, A/O X1, OPENS EYES TO NAME. PATIENT ON T-PIECE 4LPM, O2 SAT 100%, NO SOB NOTED, NO DISTRESS NOTED. NO SIGNIFICANT FINDINGS UPON ALL NURSING ASSESSMENTS. COURTNEY MID LINE, PATENT INTACT AND FLUSHED WITH NS. GTUBE JEVITY 1.2 @ 50ML/HR, , HOB KEPT ELEVATED. ALL DUE ISOLATION PRECAUTIONS IMPLEMENTED. ALL SAFETY PRECAUTION IMPLEMENTED. BED IS AT LOWEST POSITION AND LOCKED. BED ALARM ARMED ON. CALL LIGHT IS WITHIN REACH. WILL DINAH.
[2021-05-20 07:38] LABS: BASOPHILS # (AUTO) 0.1 K/uL (0.0-0.2); BASOPHILS % (AUTO) 1.3 % (0.0-2.0); EOSINOPHILS % (AUTO) 12.9 % (0.0-6.0); HEMATOCRIT 27 % (39-51); HEMOGLOBIN 9.2 g/dL (13.5-17.5); LYMPHOCYTES # (AUTO) 1.9 K/uL (0.8-4.8); MEAN CORPUSCULAR HGB CONC 34 g/dl (31.0-36.0); MEAN CORPUSCULAR VOLUME 93 fL (80-96); MONOCYTES # (AUTO) 0.8 K/uL (0.1-1.30); NEUTROPHILS # (AUTO) 5.1 K/uL (1.8-8.9); NEUTROPHILS % (AUTO) 55.8 % (43.0-81.0); PLATELET COUNT (AUTO) 418 K/uL (150-450); WHITE BLOOD COUNT (AUTO) 9.1 K/uL (4.3-11.0)
[2021-05-20] MEDS: MEROPENEM 1 G in IV NS 0.9% 100 ML IV SCH ×2 (07:50→15:30)
[2021-05-20] MEDS: PANTOPRAZOLE 40 MG TABLET.DR PO SCH (07:50)
[2021-05-20 08:00] VITALS: BP 123/59
[2021-05-20] MEDS: MICAFUNGIN SODIUM 100 MG in IV NS 0.9% 100 ML IV SCH (09:16)
[2021-05-20] MEDS: BACLOFEN (10 MG) 10 MG TABLET GT SCH ×3 (09:16→17:18)
[2021-05-20] MEDS: CHOLECALCIFEROL (VITAMIN D 3) 400 UNIT TABLET GT SCH (09:16)
[2021-05-20] MEDS: TAMSULOSIN 0.4 MG CAP.SR.24H PO SCH (09:16)
[2021-05-20] MEDS: DOCUSATE SODIUM 100 MG CAPSULE PO SCH (09:17)
[2021-05-20] MEDS: LEVOTHYROXINE SODIUM 75 MCG TABLET GT SCH (09:17)
--- NOTE | 2021-05-20 09:45 | NUR ---
PER [facility] COVID NEGATIVE.
[2021-05-20 12:00] VITALS: BP 123/65
[2021-05-20] MEDS ORDERED: MICA100V3 IV (12:38)
[2021-05-20] MEDS ORDERED: MERO1VIA23 IV (12:38)
[2021-05-20] MEDS ORDERED: LACT-209 GT (12:38)
[2021-05-20] MEDS ORDERED: MAG30ORA PO (12:38)
[2021-05-20 16:00] VITALS: BP 118/67
--- NOTE | 2021-05-20 18:00 | NUR ---
RN NOTE PATIENT IN BED, A/O X1, OPENS EYES TO NAME. PATIENT ON T-PIECE 4LPM, O2 SAT 100%, NO SOB NOTED, NO DISTRESS NOTED. NO SIGNIFICANT FINDINGS UPON ALL NURSING ASSESSMENTS. MANUELITO MID LINE, PATENT INTACT AND FLUSHED WITH NS. GTUBE JEVITY 1.2 @ 50ML/HR, NO RESIDUAL NOTED ASPIRATION THROUGHOUT SHIFT, HOB KEPT ELEVATED. ALL DUE ISOLATION PRECAUTIONS IMPLEMENTED. ALL DUE MEDS GIVEN, ALL NEEDS ATTENDED TO. CHANGED WOUND DRESSING, PHOTO TAKEN FROM THE WOUND AND PLACED IN CHART, PT DISCHARGED IN STABLE CONDITION AT 1800 WITH EMT.
== END 2021-05-20 18:53 | DRG 871 ==
LOC: ER 13:00 → TRANSITION 16:17 → TELE1 21:24
PROVIDERS: ATTEND Registered Nurse
PROC: 0W993ZZ Drainage of Right Pleural Cavity, Percutaneous Approach (ICD-10-PCS; principal; 2021-05-18)
PROC: 05HC33Z Insertion of Infusion Device into Left Basilic Vein, Percutaneous Approach (ICD-10-PCS; 2021-05-20)
DX: A41.9 Sepsis, unspecified organism (principal); J96.21 Acute and chronic respiratory failure with hypoxia; J18.9 Pneumonia, unspecified organism; D68.59 Other primary thrombophilia; J90 Pleural effusion, not elsewhere classified; Z99.11 Dependence on respirator [ventilator] status; J91.8 Pleural effusion in other conditions classified elsewhere; N39.0 Urinary tract infection, site not specified; E11.9 Type 2 diabetes mellitus without complications; E03.9 Hypothyroidism, unspecified; Z86.73 Personal history of transient ischemic attack (TIA), and cerebral infarction without residual deficits; Z93.1 Gastrostomy status; I48.91 Unspecified atrial fibrillation; Z20.822 Contact with and (suspected) exposure to COVID-19; Z93.0 Tracheostomy status; Z86.718 Personal history of other venous thrombosis and embolism; Z87.440 Personal history of urinary (tract) infections; Z87.442 Personal history of urinary calculi; R13.10 Dysphagia, unspecified; Z88.8 Allergy status to other drugs, medicaments and biological substances; Z79.51 Long term (current) use of inhaled steroids; Z79.01 Long term (current) use of anticoagulants; Z79.899 Other long term (current) drug therapy; L89.619 Pressure ulcer of right heel, unspecified stage; E78.5 Hyperlipidemia, unspecified; I10 Essential (primary) hypertension; I25.10 Atherosclerotic heart disease of native coronary artery without angina pectoris; N20.0 Calculus of kidney; L89.896 Pressure-induced deep tissue damage of other site; S90.821A Blister (nonthermal), right foot, initial encounter; X58.XXXA Exposure to other specified factors, initial encounter; Y92.9 Unspecified place or not applicable; N40.0 Benign prostatic hyperplasia without lower urinary tract symptoms; E11.36 Type 2 diabetes mellitus with diabetic cataract; Z74.09 Other reduced mobility; M62.562 Muscle wasting and atrophy, not elsewhere classified, left lower leg; M62.561 Muscle wasting and atrophy, not elsewhere classified, right lower leg; B37.9 Candidiasis, unspecified; K76.89 Other specified diseases of liver
CPT/HCPCS: 31720; 36415; 71045-TC; 80048-TC; 80053-TC; 80076-TC; 80202-TC; 81001; 83540-TC; 83605-TC; 83735-TC; 83880; 84100-TC; 84155-TC; 84439-TC; 84443-TC; 84484-TC; 85025-TC; 85378-TC; 85610-TC; 85730-TC; 86140-TC; 87040-TC; 87070-TC; 87075-TC; 87081-TC; 87086-TC; 87102-TC; 87186-TC; 87806; 89051-TC; 93307-TC; 94640-TC; 94760-TC; 94799-TC; A4623; G0378; J2185; J2248; J3370; J7030; J7050; J7060; Q9967; U0003

== ENCOUNTER 2022-06-08 17:17 | Inpatient (IN) | payer MEDICARE, OTHER ==
[~2022-06-08] VITALS: Ht 175.3 cm; Wt 68.0 kg
[~2022-06-08 17:17] MED LIST changes: +LACT-209 GT; +MAG30ORA PO; +MERO1VIA23 IV; +MICA100V3 IV
--- NOTE | 2022-06-08 17:20 | NUR ---
BIB RA [address] [facility] PT HAS A FEVER, ELEVATED HEART RATE AND TESTED POSITIVE FOR COVID. PLACED IN BED, AWAKE NON VERBAL, BREATHING EVEN AND UNLABORED SATURATING AT 99% WITH 2LIT O2.
--- NOTE | 2022-06-08 17:50 | NUR ---
() JOCELYN: [phone] SABRINA [phone] HOME
[2022-06-08 17:56] LABS: HEMATOCRIT 33 % (39-51); HEMOGLOBIN 10.3 g/dL (13.5-17.5); LYMPHOCYTES % (AUTO) 4.1 % (20.0-44.0); MEAN CORPUSCULAR HGB CONC 32 g/dl (31.0-36.0); MEAN CORPUSCULAR VOLUME 96 fL (80-96); MONOCYTES % (AUTO) 3.5 % (2.0-12.0); NEUTROPHILS % (AUTO) 92.4 % (43.0-81.0); PLATELET COUNT (AUTO) 330 K/uL (150-450); WHITE BLOOD COUNT (AUTO) 20.7 K/uL (4.3-11.0)
[2022-06-08 17:57] LABS: LYMPHOCYTES # (AUTO) 0.9 K/uL (0.8-4.8); MONOCYTES # (AUTO) 0.7 K/uL (0.1-1.30); NEUTROPHILS # (AUTO) 19.1 K/uL (1.8-8.9)
[2022-06-08] MEDS ORDERED: ACETAMINOPHEN ES 500 MG TABLET PO ONE (18:00)
[2022-06-08] MEDS ORDERED: ACETAMINOPHEN 650 MG/SUPP.RECT RC ONE ×2 (18:00→18:25)
[2022-06-08] MEDS ORDERED: VANCOMYCIN 1 GM in IV D5W 250 ML IV ONE (18:00)
[2022-06-08] MEDS ORDERED: CEFEPIME 1 GM in IV D5W 50 ML IV ONE (18:00)
[2022-06-08] MEDS ORDERED: IV NS 0.9% 1,000 ML BAG IV ONE (18:00)
--- NOTE | 2022-06-08 18:00 | NUR ---
BLOOD DRAWN AND URINE SAMPLE SENT TO LAB
[2022-06-08 18:12] LABS: CALCIUM, SERUM 8.8 mg/dL (8.5-10.1); CARBON DIOXIDE 31 mmol/L (21-32); CHLORIDE 97 mmol/L (98-107); GLUCOSE 137 mg/dL (74-106); POTASSIUM 4.1 mmol/L (3.5-5.1); SODIUM SERUM 134 mmol/L (136-145); UREA NITROGEN, BLOOD 32 mg/dL (7-18)
[2022-06-08 18:19] LABS: ALANINE AMINOTRANSFERASE 19 U/L (12-78); ALBUMIN 2.2 g/dL (3.4-5.0); ALKALINE PHOSPHATASE 120 U/L (46-116); ASPARTATE AMINOTRANSFERASE 17 U/L (15-37); BILIRUBIN,DIRECT 0.2 mg/dL (0.0-0.2); BILIRUBIN,TOTAL 0.5 mg/dL (0.2-1.0); TOTAL PROTEIN, SERUM 7.7 g/dL (6.4-8.2)
[2022-06-08 19:07] LABS: BILIRUBIN,URINE NEGATIVE (NEGATIVE); COLOR,URINE YELLOW (YELLOW); LEUKOCYTE ESTERASE ,URINE 3+ (NEGATIVE); NITRITE, URINE NEGATIVE (NEGATIVE); PROTEIN,URINE 2+ mg/dl (NEGATIVE); UGLUCOSE NEGATIVE (NEGATIVE)
--- NOTE | 2022-06-08 19:16 | NUR ---
SWAB FOR COVID19 SENT TO LAB
[2022-06-08] MEDS ORDERED: ALBUTEROL FS 2.5 MG/3 ML VIAL.NEB NEB PRN (19:30)
[2022-06-08] MEDS ORDERED: Z GUARD REMEDY 4 OZ OINT TP PRN (19:30)
[2022-06-08] MEDS ORDERED: HYDROCODONE/APAP 5/325MG TABLET GT PRN (19:30)
[2022-06-08] MEDS ORDERED: INSULIN REGULAR, HUMAN 100 UNIT/ML 3 ML VIAL SQ PRN (19:30)
[2022-06-08] MEDS ORDERED: JEVITY 1.2 CAL 1,000 ML BOTTLE GT PRN (19:30)
[2022-06-08] MEDS ORDERED: DEXTROSE 50%-WATER 50 ML DISP.SYRIN IV PRN (19:30)
[2022-06-08] MEDS ORDERED: IPRATROPIUM NEB FS 0.5 MG/2.5 ML AMPUL.NEB NEB PRN (19:30)
[2022-06-08] MEDS ORDERED: ONDANSETRON HCL/PF 4 MG/2 ML VIAL IVP PRN (19:30)
--- NOTE | 2022-06-08 19:42 | NUR ---
UPDATED RL (SON) [phone]
--- NOTE | 2022-06-08 19:51 | NUR ---
HOME PHONE NUMBER FOR JOCELYN, : [phone]
[2022-06-08] MEDS ORDERED: IV NS 0.9% 1,000 ML IV ONE (20:00)
--- NOTE | 2022-06-08 20:16 | NUR ---
Flatwork Supervisor at pt's bedside
[2022-06-08 20:33] LABS: BACTERIA,URINE Moderate /HPF (None Seen); RBC,URINE 21-50 /HPF (0-2); SQUAMOUS EPITHELIAL CELL,UR Moderate /HPF (None Seen); WBC,URINE 21-50 /HPF (0-3)
[2022-06-08] MEDS ORDERED: MEROPENEM 500 MG in IV NS 0.9% 50 ML IV SCH (21:00)
[2022-06-08] MEDS ORDERED: AMIODARONE 150 MG/3 ML VIAL IV ONE ×2 (21:06→21:28)
[2022-06-08] MEDS ORDERED: AMIODARONE 150 MG in IV D5W 100 ML IV ONE (21:30)
[2022-06-08] MEDS ORDERED: AMIODARONE 450 MG in IV D5W 241 ML IV PRN (21:30)
--- NOTE | 2022-06-08 22:06 | NUR ---
REORT GIVEN TO [facility] ROOM 107 FOR DINAH
--- NOTE | 2022-06-08 22:17 | NUR ---
KINDERGARTNERS HELPERSURVEILLANCE INVESTIGATOR NOTE PT BROUGHT FROM ER TO UNIT VIA GURNEY AT THIS TIME. PT ADMITTED FROM ER TO TELE UNDER MAKENNA GOVEA FOR ADMITTED DX SEPSIS WITHOUT SHOCK, SECONDARY TO FACILITY ACQUIRED PNA, POA. PT IS NONVERBAL BUT ABLE TO COMMUNICATE WITH HEAD NODS AND SHAKES. PT WITH T PIECE RECEIVED O2 @ 6LPM, SATURATING 100%. PER RT LYNNE, UNABLE TO START NEBULIZING TREATMENTS AND OR HUMIDIFIER UNTIL PCR FOR COVID COMES BACK NEGATIVE. CHARGE NURSE MIGUEL AWARE. ON EXTERNAL POLITICAL CARTOONIST READING SR 82 BPM. IV ACCESS MANUELITO 20G, INTACT AND PATENT. NOTED WITH R BUTTOCK DTI AND LLE POSSIBLE BUG BITE, WOUND CONSULT ORDERED. DNR/DNI PER POL, MAKENNA GOVEA AWARE. PT BELONGINGS ACCOUNTED FOR AND BELONGINGS LIST SIGNED. ORIENTED TO UNIT, ROOM, AND STAFF. SAFETY PRECAUTIONS IN PLACE. BED IN LOWEST LOCKED POSITION, HOB ELEVATED, SIDE RAILS UP X3, AND CALL LIGHT AND TABLE WITHIN REACH. ALL NEEDS MET AT THIS TIME.
[2022-06-08 22:18] VITALS: BP 95/48
[2022-06-08] MEDS: IV NS 0.9% 1,000 ML IV PRN (23:07)
--- NOTE | 2022-06-08 23:08 | NUR ---
RN NOTE SCREENING SPECIALIST JEFERSON INFORMED OF BP 95/48 AND HR NSR 82 BPM. WITH NEW ORDER TO DC AMIODARONE DRIP. NEW ORDERS NOTED AND CARRIED OUT. CHARGE NURSE MIGUEL LANTIGUA.
[2022-06-09] VITALS: BP 112/61
[2022-06-09] MEDS: BLOOD SUGAR DIAGNOSTIC 1 EACH STRIP IN SCH ×4 (00:25→18:00)
[2022-06-09 04:00] VITALS: BP 111/60
--- NOTE | 2022-06-09 06:36 | NUR ---
CASTING CHIPPER CLOSING NOTE PT AWAKE IN BED. PT IS NONVERBAL BUT ABLE TO COMMUNICATE WITH HEAD NODS AND SHAKES. PT WITH T PIECE RECEIVED O2 @ 5 LPM, SATURATING 100%. ON EXTERNAL REPAIRER SCREEN CRUSHER READING SR 82 BPM. IV ACCESS MANUELITO 20G, INTACT AND PATENT, RUNNING NS @ 75 ML/HR. WITH GTUBE RUNNING JEVITY 1.2 @ 50 ML/HR. ALL DUE MEDS GIVEN ORDERED. KEPT CLEAN AND DRY. TURNED AND REPOSITIONED Q2H. SAFETY PRECAUTIONS IN PLACE AT ALL TIMES. BED IN LOWEST LOCKED POSITION, HOB ELEVATED, SIDE RAILS UP X3, AND CALL LIGHT AND TABLE WITHIN REACH. ALL NEEDS MET AT THIS TIME AND WILL ENDORSE TO ONCOMING NURSE FOR DINAH.
[2022-06-09] MEDS ORDERED: MEROPENEM 500 MG in IV NS 0.9% 50 ML IV SCH ×2 (07:00→07:30)
[2022-06-09 08:00] VITALS: BP 104/65
[2022-06-09] MEDS ORDERED: VANCOMYCIN 1 GM in IV D5W 250 ML IV SCH (08:00)
[2022-06-09] MEDS ORDERED: PANTOPRAZOLE 40 MG VIAL IV SCH (09:00)
[2022-06-09] MEDS: TAMSULOSIN 0.4 MG CAP.SR.24H GT SCH (09:08)
[2022-06-09] MEDS: LEVOTHYROXINE SODIUM 75 MCG TABLET GT SCH (09:08)
[2022-06-09] MEDS ORDERED: METO5SOL20 GT (09:21)
[2022-06-09] MEDS ORDERED: PANT40TA49 GT (09:21)
[2022-06-09] MEDS ORDERED: AMIN887L GT (09:21)
[2022-06-09] MEDS ORDERED: FINA5TAB3 GT (09:21)
[2022-06-09] MEDS ORDERED: MIRT-121 GT (09:21)
[2022-06-09 09:25] LABS: BASOPHILS % (AUTO) 0.1 % (0.0-2.0); EOSINOPHILS % (AUTO) 0.6 % (0.0-6.0); HEMATOCRIT 27 % (39-51); HEMOGLOBIN 8.5 g/dL (13.5-17.5); LYMPHOCYTES # (AUTO) 1.2 K/uL (0.8-4.8); LYMPHOCYTES % (AUTO) 6.3 % (20.0-44.0); MEAN CORPUSCULAR HGB CONC 32 g/dl (31.0-36.0); MEAN CORPUSCULAR VOLUME 95 fL (80-96); MONOCYTES # (AUTO) 0.9 K/uL (0.1-1.30); MONOCYTES % (AUTO) 4.6 % (2.0-12.0); NEUTROPHILS # (AUTO) 16.8 K/uL (1.8-8.9); NEUTROPHILS % (AUTO) 88.4 % (43.0-81.0); PLATELET COUNT (AUTO) 241 K/uL (150-450); RED BLOOD CELL COUNT(AUTO) 2.78 MIL/uL (4.5-6.0)
[2022-06-09 09:52] LABS: CALCIUM, SERUM 8.2 mg/dL (8.5-10.1); CREATININE 0.9 mg/dL (0.6-1.3); MAGNESIUM 2.1 mg/dL (1.8-2.4); PHOSPHORUS 1.8 mg/dL (2.5-4.9); POTASSIUM 3.5 mmol/L (3.5-5.1)
[2022-06-09] MEDS ORDERED: NUTR250L50 GT (10:00)
--- NOTE | 2022-06-09 10:13 | NUR ---
WOUND CARE CONSULT: REVIEWED CHART, NURSING DOCUMENTATION AND PHOTOS WHICH INDICATE LOWER LEG DISCOLORATION/REDNESS ON LEFT LOWER LEG AND SACRAL DEEP TISSUE INJURY EXTENDING TO RT BUTTOCK, PRESENT ON ADMISSION. RECOMMENDATIONS MADE FOR SKIN PROTECTION. DISCUSSED WITH NURSING STAFF. MD IN AGREEMENT WITH PLAN OF CARE.
[2022-06-09] MEDS ORDERED: JEVITY 1.2 CAL 1,000 ML BOTTLE GT PRN (10:30)
[2022-06-09] MEDS: VANCOMYCIN 1 GM in IV D5W 250 ML IV SCH ×2 (10:32→21:00)
[2022-06-09 12:00] VITALS: BP 101/57
[2022-06-09] MEDS: MEROPENEM 500 MG in IV NS 0.9% 50 ML IV SCH ×2 (12:55→20:44)
[2022-06-09] MEDS ORDERED: ALBUTEROL HALF STRENGTH 1.25 MG/3 ML VIAL.NEB NEB PRN (13:30)
[2022-06-09 16:00] VITALS: BP 104/57
[2022-06-09] MEDS ORDERED: RIVAROXABAN 10 MG TABLET GT SCH (17:00)
[2022-06-09] MEDS ORDERED: SODIUM PHOSPHATE 3 MMOL/ML IV ONE (18:00)
[2022-06-09 20:00] VITALS: BP 98/51
[2022-06-10] VITALS: BP 102/60
[2022-06-10] MEDS: BLOOD SUGAR DIAGNOSTIC 1 EACH STRIP IN SCH ×4 (00:15→18:00)
[2022-06-10 04:00] VITALS: BP 98/60
[2022-06-10] MEDS: MEROPENEM 500 MG in IV NS 0.9% 50 ML IV SCH ×3 (04:31→21:10)
[2022-06-10] MEDS: LEVOTHYROXINE SODIUM 75 MCG TABLET GT SCH ×2 (06:31→09:18)
[2022-06-10 07:29] LABS: BASOPHILS % (AUTO) 0.2 % (0.0-2.0); EOSINOPHILS % (AUTO) 3.9 % (0.0-6.0); HEMATOCRIT 26 % (39-51); HEMOGLOBIN 8.3 g/dL (13.5-17.5); LYMPHOCYTES # (AUTO) 1.3 K/uL (0.8-4.8); MEAN CORPUSCULAR HGB CONC 32 g/dl (31.0-36.0); MEAN CORPUSCULAR VOLUME 95 fL (80-96); MONOCYTES # (AUTO) 0.6 K/uL (0.1-1.30); MONOCYTES % (AUTO) 5.1 % (2.0-12.0); NEUTROPHILS # (AUTO) 10.2 K/uL (1.8-8.9); NEUTROPHILS % (AUTO) 80.8 % (43.0-81.0); PLATELET COUNT (AUTO) 252 K/uL (150-450); RED BLOOD CELL COUNT(AUTO) 2.72 MIL/uL (4.5-6.0); WHITE BLOOD COUNT (AUTO) 12.7 K/uL (4.3-11.0)
[2022-06-10 07:54] LABS: CREATININE 0.8 mg/dL (0.6-1.3); PHOSPHORUS 2.9 mg/dL (2.5-4.9); POTASSIUM 3.6 mmol/L (3.5-5.1)
[2022-06-10] MEDS ORDERED: PANTOPRAZOLE 40 MG/PACK PACK PO SCH (09:00)
[2022-06-10] MEDS: TAMSULOSIN 0.4 MG CAP.SR.24H GT SCH (09:18)
[2022-06-10] MEDS: PANTOPRAZOLE 40 MG/PACK PACK GT SCH (09:51)
[2022-06-10 10:00] VITALS: BP 96/47
[2022-06-10 12:00] VITALS: BP 100/56
[2022-06-10 16:00] VITALS: BP 104/52
--- NOTE | 2022-06-10 19:54 | NUR ---
Accu Check completed for 1800 at a later time. POC Glucose = 98.
[2022-06-10 20:00] VITALS: BP 106/57
--- NOTE | 2022-06-10 20:36 | NUR ---
VICE PRESIDENT OF CONSULTING SERVICES OPENING NOTES: RECEIVED PATIENT AWAKE IN BED, BED IN LOW POSITION CALL LIGHTS WITHIN REACH, NO COMPLAIN OF PAIN AND DISCOMFORT AT THIS TIME ON T-PIECE SATURATING AT 100%, ON TELE MONITOR- SR-88, WITH ONGOING JEVITY 1.2 @50ML/HR INFUSING WELL, IV LINE AT [place] WITH 0.9NS@75ML/HR INFUSING WELL, PATIENT KEPT CLEAN AND DRY ALL NEEDS MET WILL CONTINUE TO MONITOR.
[2022-06-10] MEDS ORDERED: VANCOMYCIN 0.75 GM in IV D5W 250 ML IV SCH (22:00)
[2022-06-11] VITALS: BP 107/52
--- NOTE | 2022-06-11 00:40 | NUR ---
RN NOTES: BLOOD SUGAR-114/ NO INSULIN GIVEN PER SLIDING SCALE.
[2022-06-11 04:00] VITALS: BP 111/53
[2022-06-11] MEDS: MEROPENEM 500 MG in IV NS 0.9% 50 ML IV SCH ×3 (05:23→21:07)
[2022-06-11] MEDS: BLOOD SUGAR DIAGNOSTIC 1 EACH STRIP IN SCH ×4 (06:00→16:46)
--- NOTE | 2022-06-11 06:25 | NUR ---
RN NOTES: BLOOD SUGAR- 128 / NO INSULIN GIVNE PER SLIDING SCALE.
--- NOTE | 2022-06-11 06:31 | NUR ---
CHAMPAGNE MAKER CLOSING NOTES: PATIENT AWAKE IN BED, BED IN LOW POSITION, CALL LIGHTS WITHIN REACH, NO COMPLAIN OF PAIN AND DISCOMFORT AT THIS TIME, NO FACIAL GRIMACING, ON T- PIECE, SATURATING AT 98%, ON G TUBE FEEDING OF JEVITY 1.2@50 ML/HR INFUSING WELL, IV LINE AT MANUELITO ML #20 WITH 0.9NSS@75ML/HR INFUSING WELL, ON CONDOM CATHETER- 875 ML. PATIENT KEPT CLEAN AND DRY, REPOSITION, ALL NEEDS MET ENDORSE TO INCOMING SHIFT.
[2022-06-11 06:45] LABS: BASOPHILS % (AUTO) 0.3 % (0.0-2.0); HEMATOCRIT 26 % (39-51); HEMOGLOBIN 8.5 g/dL (13.5-17.5); LYMPHOCYTES # (AUTO) 1.4 K/uL (0.8-4.8); LYMPHOCYTES % (AUTO) 15.6 % (20.0-44.0); MEAN CORPUSCULAR HGB CONC 33 g/dl (31.0-36.0); MEAN CORPUSCULAR VOLUME 95 fL (80-96); MONOCYTES # (AUTO) 0.6 K/uL (0.1-1.30); NEUTROPHILS # (AUTO) 6.7 K/uL (1.8-8.9); NEUTROPHILS % (AUTO) 73.1 % (43.0-81.0); PLATELET COUNT (AUTO) 333 K/uL (150-450); RED BLOOD CELL COUNT(AUTO) 2.74 MIL/uL (4.5-6.0); WHITE BLOOD COUNT (AUTO) 9.2 K/uL (4.3-11.0)
[2022-06-11 07:28] LABS: CALCIUM, SERUM 8.3 mg/dL (8.5-10.1); CREATININE 0.8 mg/dL (0.6-1.3); POTASSIUM 3.7 mmol/L (3.5-5.1)
--- NOTE | 2022-06-11 07:29 | NUR ---
COLLISION TECHNICIAN OPENING NOTES: RECEIVED PATIENT SLEEPING IN BED, BED IN LOW POSITION CALL LIGHTS WITHIN REACH, NO COMPLAIN OF PAIN AND DISCOMFORT AT THIS TIME ON T-PIECE SATURATING AT 100%, ON TELE MONITOR- SR-88, WITH ONGOING JEVITY 1.2 @50ML/HR INFUSING WELL, IV LINE AT MANUELITO ML WITH 0.9NS@75ML/HR INFUSING WELL,WILL KEEP PATIENT CLEAN AND DRY .WILL CONTINUE TO MONITOR
[2022-06-11 08:00] VITALS: BP 123/62
[2022-06-11] MEDS: PANTOPRAZOLE 40 MG/PACK PACK GT SCH (08:04)
[2022-06-11] MEDS: TAMSULOSIN 0.4 MG CAP.SR.24H GT SCH (08:04)
[2022-06-11] MEDS: LEVOTHYROXINE SODIUM 75 MCG TABLET GT SCH (08:04)
--- NOTE | 2022-06-11 10:45 | NUR ---
CHARGE NURSE NOTES THORACENTESIS LEFT, NOT DONE, PER DR. SPEARS FLUID AMOUNT IS TOO SMALL.
[2022-06-11] MEDS: IV NS 0.9% 1,000 ML IV PRN (11:14)
[2022-06-11 12:00] VITALS: BP 100/54
[2022-06-11 16:00] VITALS: BP 112/60
[2022-06-11] MEDS: RIVAROXABAN 10 MG TABLET PO SCH (16:54)
--- NOTE | 2022-06-11 18:29 | NUR ---
DRUM DRIER OPERATOR CLOSING NOTES: PATIENT AWAKE IN BED, BED IN LOW POSITION, CALL LIGHTS WITHIN REACH, NO COMPLAIN OF PAIN AND DISCOMFORT AT THIS TIME, NO FACIAL GRIMACING, ON T- PIECE, SATURATING AT 98%, ON G TUBE FEEDING OF JEVITY 1.2@50 ML/HR INFUSING WELL, IV LINE AT MANUELITO ML #20 WITH 0.9NSS@75ML/HR INFUSING WELL, ON CONDOM CATHETER- 875 ML. PATIENT KEPT CLEAN AND DRY, REPOSITION, ALL NEEDS MET , ALL MEDICATIONS WERE ADMINISTRED WILL ENDORSE TO INCOMING SHIFT.
--- NOTE | 2022-06-11 19:10 | NUR ---
RN NOTE RECEIVED PATIENT IN BED, ON SEMI POLANCO'S, AO X 1, NODS HEAD BUT NON VERBAL, IN NO ACUTE DISTRESS, SATURATION AT 95% ON TRACH TO COOL AEROSOL MIST, AFIB ON THE MONITOR, HR IS 83. MANUELITO MIDLINE PATENT AND FLUSHING WELL WITH NS INFUSING AT 75 ML/HR. GTUBE IN PLACE, POSITIVE PLACEMENT NOTED WITH JEVITY AT 50 ML/HR. SAFETY MEASURES IN PLACE, BED IS LOCKED AND AT LOWEST POSITION, BED ALARM IS ON, HOB ELEVATED, CALL LIGHT WITHIN REACH OF PATIENT. WILL CONTINUE TO MONITOR AND REASSESS.
--- NOTE | 2022-06-11 19:23 | NUR ---
RN NOTE NOTIFIED BY PRODUCE SPECIALIST PT SHOWING AFIB ON THE MONITOR, GIVEN ST ON INITIAL EKG. HR GOING 160'S NON SUSTAINING MOSTLY CONTROLLED <100. DR GOVEA WAS NOTIFIED, ORDER RECEIVED FOR NS 250 BOLUS X 1.
[2022-06-11 20:00] VITALS: BP 100/53
[2022-06-11] MEDS ORDERED: IV NS 0.9% 250 ML IV ONE (20:30)
[2022-06-12] VITALS: BP 105/59
[2022-06-12] MEDS: BLOOD SUGAR DIAGNOSTIC 1 EACH STRIP IN SCH ×4 (00:19→17:04)
[2022-06-12] MEDS: IV NS 0.9% 1,000 ML IV PRN ×2 (02:36→17:47)
[2022-06-12 04:00] VITALS: BP 111/59
[2022-06-12] MEDS: MEROPENEM 500 MG in IV NS 0.9% 50 ML IV SCH ×2 (05:05→12:03)
[2022-06-12 06:32] LABS: BASOPHILS # (AUTO) 0.1 K/uL (0.0-0.2); BASOPHILS % (AUTO) 0.7 % (0.0-2.0); EOSINOPHILS % (AUTO) 6.7 % (0.0-6.0); HEMATOCRIT 25 % (39-51); HEMOGLOBIN 8.3 g/dL (13.5-17.5); LYMPHOCYTES # (AUTO) 1.7 K/uL (0.8-4.8); LYMPHOCYTES % (AUTO) 20.2 % (20.0-44.0); MEAN CORPUSCULAR HGB CONC 33 g/dl (31.0-36.0); MEAN CORPUSCULAR VOLUME 95 fL (80-96); MONOCYTES # (AUTO) 0.6 K/uL (0.1-1.30); MONOCYTES % (AUTO) 7.1 % (2.0-12.0); NEUTROPHILS # (AUTO) 5.5 K/uL (1.8-8.9); NEUTROPHILS % (AUTO) 65.3 % (43.0-81.0); PLATELET COUNT (AUTO) 404 K/uL (150-450); RED BLOOD CELL COUNT(AUTO) 2.66 MIL/uL (4.5-6.0); WHITE BLOOD COUNT (AUTO) 8.4 K/uL (4.3-11.0)
[2022-06-12 07:07] LABS: CALCIUM, SERUM 8.2 mg/dL (8.5-10.1); CREATININE 0.7 mg/dL (0.6-1.3); MAGNESIUM 2.1 mg/dL (1.8-2.4); PHOSPHORUS 2.7 mg/dL (2.5-4.9); POTASSIUM 3.4 mmol/L (3.5-5.1)
[2022-06-12 08:00] VITALS: BP 114/59
[2022-06-12] MEDS: TAMSULOSIN 0.4 MG CAP.SR.24H GT SCH (08:10)
[2022-06-12] MEDS: PANTOPRAZOLE 40 MG/PACK PACK GT SCH (08:11)
[2022-06-12] MEDS ORDERED: POTASSIUM CHLORIDE 20 MEQ POWDER PACKET GT ONE (10:00)
[2022-06-12 12:00] VITALS: BP 105/71
[2022-06-12] MEDS ORDERED: TAMS-12 GT (14:38)
[2022-06-12] MEDS ORDERED: CEPH250S PO (14:38)
[2022-06-12 16:00] VITALS: BP 113/63
[2022-06-12] MEDS: RIVAROXABAN 10 MG TABLET PO SCH (17:11)
--- NOTE | 2022-06-12 17:53 | NUR ---
COVID RAPID TEST DONE AND SENT IT TO THE LAB
--- NOTE | 2022-06-12 19:40 | NUR ---
RN NOTES: RECEIVED ENDORSEMENT FROM OUTGOING NURSE,Natalya/OX2-3, LOOKS SLEEPY, ON ROOM AIR, NON LABORED BREATHING , NO STERNAL OR ABDOMINAL RETRACTION NOTED, ON TELE MONITOR SR-69 WITH 1ST DEGREE AV BLOCK, HE HAS DVT ON RLE, ON HEPARIN DRIP AT 1300 UNIT=26 ML/HR VIA COURTNEY ML, THEN IVF OF NS AT 200 ML/HR VIA RAC G#20 PATENT, FOR LABS IN THE MORNING, , MONITORED FOR ANY SIGN OF BLEEDING, HE HAS PS ON THE SACRUM, DTI SACRUM, AND DIABETIC ULCER LEFT FOOT , KEPT ELEVATED WHILE IN BED.MONITORED AND KEPT ON CLOSE WATCH.
--- NOTE | 2022-06-12 19:42 | NUR ---
RN NOTES: OUTGOING RN GIVEN ENDORSEMENT THIS PATIENT IS FOR DISCHARGE TO [facility], REPORT WAS ALREADY CALLED BY CHARGE NURSE PER ENDORSEMENT, ALL PAPERE WORKS ARE READY, PAPERS ARE ALL SIGNED, BELONGINGS CHECKLIST ALL SIGN AND CHECKED BY OUTGOING NURSE.COMPLETE [id number] PACKET HAND IN DURING ENDORSEMENT. Addendum: 06/12/22 at 2052 by FRANCINE BEYER RN ADDED NOTES: PER ENDORSEMENT COVID TEST WAS NEGATIVE AND AMBULANCE WAS ALREADY ARRANGE AND COMING TO [employer] THE PATIENT FOR DISCHARGE TRANSFER TO [facility].
--- NOTE | 2022-06-12 19:45 | NUR ---
RN NOTES: [facility] EMT ARRIVED, CALLED CHARGE NURSE AND NOTFIED OF THE PICK/UP, CALLED RT TO CHANGE THE T-PIECE CONNECTION AND READY FOR DISCHARGE, REMOVED CANNULA ON THE COURTNEY, PRESSURE DRESSING APPLIED, NO BLEEDING, G-TUBE FLUSHED, AND DISCONNECT FROM FEEDING, CONDOM CATH IS INTACT WITH URINE OUTPUT AT 50CC LEVEL, CLEAR COLORED URINE. -V/S 98.3 NJ-108 RR-20 SPO2-99% BP-139/72/ TRANSFERRED TO [facility], TELE MONITOR REMOVED.
[2022-06-12 20:00] VITALS: BP 139/72
--- NOTE | 2022-06-12 20:11 | NUR ---
RN NOTES: PATIENT LEFT THE UNIT, DISCHARGE VIA GURNEY P/U BY EMT OF [facility], T-PICE WITH 10 LITERS OF O2 ONGOING, RESIDENT LOOKS RELAX, NO SIGN OF RESPIRATORY DISTRESS, HE WAS SUCTIONED PRIOR TO LEAVING THE UNIT, NO BLEEDING ON THE iv CANNULA SITE, G-TUBE INTACT AND CONDOM DRAINING WELL. LEFT AT 2010, CHARGE NURSE NOTIFIED, DISCHARGE APERS HAND IN TO EMT.
== END 2022-06-13 06:24 | DRG 871 ==
LOC: ER 17:19 → TELE1 20:52
PROVIDERS: ADMIT Nurse Practitioner Acute Care; ATTEND Nurse Practitioner Acute Care
DX: A41.9 Sepsis, unspecified organism (principal); G93.41 Metabolic encephalopathy; J15.6 Pneumonia due to other Gram-negative bacteria; J96.20 Acute and chronic respiratory failure, unspecified whether with hypoxia or hypercapnia; N39.0 Urinary tract infection, site not specified; D68.59 Other primary thrombophilia; L03.115 Cellulitis of right lower limb; L03.116 Cellulitis of left lower limb; E87.20 Acidosis, unspecified; J98.11 Atelectasis; I48.0 Paroxysmal atrial fibrillation; Z20.822 Contact with and (suspected) exposure to COVID-19; Z86.73 Personal history of transient ischemic attack (TIA), and cerebral infarction without residual deficits; Z66 Do not resuscitate; Z93.0 Tracheostomy status; Z93.1 Gastrostomy status; R13.10 Dysphagia, unspecified; I48.91 Unspecified atrial fibrillation; Z87.440 Personal history of urinary (tract) infections; Z86.718 Personal history of other venous thrombosis and embolism; Z88.0 Allergy status to penicillin; Z79.899 Other long term (current) drug therapy; Z79.51 Long term (current) use of inhaled steroids; Z79.01 Long term (current) use of anticoagulants; I10 Essential (primary) hypertension; Z86.19 Personal history of other infectious and parasitic diseases; Z88.6 Allergy status to analgesic agent; Z74.01 Bed confinement status; K21.9 Gastro-esophageal reflux disease without esophagitis; K29.70 Gastritis, unspecified, without bleeding; I25.10 Atherosclerotic heart disease of native coronary artery without angina pectoris; D63.8 Anemia in other chronic diseases classified elsewhere; B96.20 Unspecified Escherichia coli [E. coli] as the cause of diseases classified elsewhere; E03.9 Hypothyroidism, unspecified; E11.9 Type 2 diabetes mellitus without complications; Z87.442 Personal history of urinary calculi; H26.9 Unspecified cataract; Z74.09 Other reduced mobility; T14.8XXA Other injury of unspecified body region, initial encounter; X58.XXXA Exposure to other specified factors, initial encounter; Y92.9 Unspecified place or not applicable; L89.92 Pressure ulcer of unspecified site, stage 2; N40.0 Benign prostatic hyperplasia without lower urinary tract symptoms; E78.5 Hyperlipidemia, unspecified; R65.20 Severe sepsis without septic shock; Y95 Nosocomial condition
CPT/HCPCS: 31720; 36415; 71045-TC; 76604-TC; 80048-TC; 80076-TC; 80202-TC; 81001; 82962-TC; 83605-TC; 83735-TC; 84100-TC; 84484-TC; 85025-TC; 85730-TC; 87040-TC; 87081-TC; 87086-TC; 94640-TC; 94664-TC; 94760-TC; 94799-TC; A4349; A6403; A9563; C9113; C9803; G0378; J0282; J0692; J1815; J2185; J3370; J7030; J7050; J7060; U0003